=== PATIENT | male | born 1965 | race Caucasian/White ===

== ENCOUNTER 2018-10-01 21:32 | Inpatient (IN) | END 2018-10-15 18:05 | disposition home or self-care (01) | DRG 673 ==

== ENCOUNTER 2019-02-21 15:59 | Inpatient (IN) | payer MEDICAID ==
[~2019-02-21] VITALS: Ht 167.6 cm; Wt 78.5 kg
[~2019-02-21 15:59] MED LIST: ASPI-831 PO; ATOR-2 PO; BUME1TAB PO; CALC667C PO; CARV25TA79 PO; HYDR-3672 PO; LANT3I SC; LOSA25TA2 PO; NITR0.4T32 SL
[2019-02-21] MEDS ORDERED: FUROSEMIDE 40 MG INJ IV ONE (19:00)
--- NOTE | 2019-02-21 19:00 | ERD ---
ER Documentation Chief Complaint Chief Complaint SWELLING AND WATER RETENTION FOR THE PAST 2 WKS. MILD SOB ON EXERTION HPI This is a 54-year-old male with a past medical history of end-stage renal disease. The patient had been admitted to [facility] in September 2018, 4 months prior to arrival. The patient had been seen by the hospitalist and underwent emergent dialysis. He had a right tunneled chest catheter placed. The patient had left AGAINST MEDICAL ADVICE as he stated he did not want to continue dialysis. Therefore the patient has not received any further dialysis at this time. Indicates for the past 2 weeks he has had increased swelling of his lower extremities and abdomen. He denies any abdomi nal pain. He complains of mild shortness of breath at rest. He denies a productive or nonproductive cough. He is in no fevers or shaking or chills. He denies any frequency urgency or dysuria and has no difficulty urinating. The patient went to his primary care physician today who indicated that they could arrange for dialysis to be performed in the next several days but he required ancillary laboratory work. Therefore his niece brought him to the emergency department to be further evaluated. The patient denies any calf tenderness. ROS All systems reviewed and are negative except as per history of present illness. Medications Home Meds Reported Medications Clonidine Hcl* (Clonidine Hcl*) 0.1 Mg Tab, 0.1 MG PO BID, TAB 02/21/19 Amlodipine Besylate* (Amlodipine Besylate*) 10 Mg Tablet, 10 MG PO DAILY, #30 TAB 02/21/19 Insulin Aspart (Novolog Mix (70/30)) 100 Units/Ml Soln, 15 UNIT SC WITH LUNCH, VIAL 02/21/19 Hydralazine Hcl* (Hydralazine Hcl*) 25 Mg Tab, 25 MG PO TID, #90 TAB 02/21/19 Losartan Potassium* (Losartan Potassium*) 25 Mg Tablet, 25 MG PO DAILY, TAB 02/21/19 Carvedilol* (Carvedilol*) 25 Mg Tablet, 25 MG PO BID, #60 TAB 02/21/19 Bumetanide* (Bumetanide*) 1 Mg Tablet, 1 MG PO DAILY, TAB 02/21/19 Atorvastatin* (Atorvastatin*) 40 Mg Tablet, 40 MG PO QHS, #30 TAB 02/21/19 Aspirin* (Aspirin* EC) 81 Mg Tablet.dr, 81 MG PO DAILY, TAB 02/21/19 Discontinued Scripts Insulin Glargine* (Lantus*) 100 Unit/Ml Soln, 4 UNIT SC DAILY, #1 VIAL Prov:[facility] 10/15/18 Calcium Acetate* (Calcium Acetate*) 667 Mg Capsule, 1334 MG PO WITH MEALS, #90 CAP Prov:[facility] 10/15/18 Bumetanide* (Bumetanide*) 1 Mg Tablet, 1 MG PO DAILY, #60 TAB Prov:[facility] 10/15/18 Nitroglycerin* (Nitroglycerin* SL) 0.4 Mg Tab.subl, 1 TAB SL Q5M PRN for CHEST PAIN, #90 TAB Prov:[facility] 10/15/18 Aspirin (Aspirin) 81 Mg Chew, 81 MG PO DAILY, #60 TAB Prov:[facility] 10/15/18 Losartan Potassium* (Cozaar*) 25 Mg Tablet, 25 MG PO DAILY, #60 TAB Prov:[facility] 10/15/18 Hydralazine Hcl* (Apresoline*) 50 Mg Tab, 25 MG PO TID, #90 TAB Prov:[facility] 10/15/18 Carvedilol* (Carvedilol*) 25 Mg Tablet, 25 MG PO BID, #60 TAB Prov:[facility] 10/15/18 Atorvastatin* (Atorvastatin*) 80 Mg Tablet, 80 MG PO HS, #60 TAB Prov:[facility] 10/15/18 Allergies Allergies: Coded Allergies: No Known Allergy (Unverified , 02/21/19) PMhx/Soc History of Surgery: No Anesthesia Reaction: No Hx Neurological Disorder: No Hx Respiratory Disorders: No Hx Cardiac Disorders: No Hx Psychiatric Problems: No Hx Miscellaneous Medical Probl: Yes (hypertension, type 1 diabetes, dyslipidemia) Hx Alcohol Use: No Hx Substance Use: No Hx Tobacco Use: Yes Smoking Status: Current every day smoker Physical Exam Vitals Vital Signs Date Temp Pulse Resp B/P (MAP) Pulse Ox O2 O2 Flow FiO2 Time Delivery Rate 02/21/19 97.9 88 16 178/86 96 Room Air 18:23 (116) 02/21/19 97.5 94 18 207/95 97 16:04 (132) Physical Exam Constitutional:Well-developed. Well-nourished. HEENT:Normocephalic. Atraumatic.Pupils were equal round reactive to light. Moist mucous membranes.No tonsillar exudates. Neck: No nuchal rigidity. No lymphadenopathy. No posterior cervical spine tenderness or step-offs. Respiratory: Not using accessory muscles of respiration.Lungs were clear to auscultation bilaterally. No rhonchi. No rales. No wheezing. Cardiovascular: Regular rate regular rhythm.No murmurs. No rubs were appreciated.S1, S2 normal. Distal pulses are palpable 2+ bilaterally. 2+ pitting edema the bilateral lower extremities GI: Abdomen was soft. Nontender. Non Distended. No pulsatile abdominal masses or bruits. No rebound. No guarding. Bowel sounds were present and normal. Muscle skeletal: Full range of motion of both the upper and lower extremities bilaterally.Normal muscle tone.No assymetrical calf tenderness or swelling. Skin: No petechia, no purpura. No lesions on the palms or the soles of the feet. No maculopapular rash. Right tunneled chest wall catheter was in place. There is a significant amount of dirt surrounding the catheter site. Once this was clean there is no surrounding erythema warmth tenderness fluctuance or induration no purulent drainage. No tenderness out of proportion to physical exam. NEURO: Patient was alert, awake, orientated x3.No facial droop. Gait observed and normal with no ataxia.Speech had regular rate and rhythm. No focal neurological deficits. Result Diagram: 02/21/19183902/21/191839 Results 24 hrs Laboratory Tests Test 02/21/19 18:40 White Blood Count 4.8 10^3/ul Red Blood Count 2.71 10^6/ul Hemoglobin 8.4 g/dl Hematocrit 26.3 % Mean Corpuscular Volume 97.0 fl Mean Corpuscular Hemoglobin 31.0 pg Mean Corpuscular Hemoglobin Concent 31.9 g/dl Red Cell Distribution Width 13.3 % Platelet Count 160 10^3/UL Mean Platelet Volume 12.4 fl Immature Granulocytes % 0.200 % Neutrophils % 73.9 % Lymphocytes % 13.6 % Monocytes % 9.2 % Eosinophils % 2.1 % Basophils % 1.0 % Nucleated Red Blood Cells % 0.0 /100WBC Immature Granulocytes # 0.010 10^3/ul Neutrophils # 3.5 10^3/ul Lymphocytes # 0.7 10^3/ul Monocytes # 0.4 10^3/ul Eosinophils # 0.1 10^3/ul Basophils # 0.1 10^3/ul Nucleated Red Blood Cells # 0.0 10^3/ul Prothrombin Time 14.3 Sec Prothrombin Time Ratio 1.1 INR International Normalized Ratio 1.10 Activated Partial Thromboplast Time 32.6 Sec Sodium Level 138 mmol/L Potassium Level 5.1 mmol/L Chloride Level 103 mmol/L Carbon Dioxide Level 21 mmol/L Anion Gap 14 Blood Urea Nitrogen 101 mg/dl Creatinine 11.34 mg/dl Est Glomerular Filtrat Rate mL/min 5 mL/min Glucose Level 126 mg/dl Calcium Level 8.2 mg/dl Total Bilirubin 0.0 mg/dl Direct Bilirubin 0.00 mg/dl Indirect Bilirubin 0.0 mg/dl Aspartate Amino Transf (AST/SGOT) 13 IU/L Alanine Aminotransferase (ALT/SGPT) 16 IU/L Alkaline Phosphatase 127 IU/L Total Protein 6.7 g/dl Albumin 3.4 g/dl Globulin 3.30 g/dl Albumin/Globulin Ratio 1.03 Current Medications Medications Dose Sig/Rafael Start Time Status Last (Trade) Ordered Route PRN Stop Time Admin Dose Reason Admin Furosemide 80 mg ONCE ONCE 02/21/19 DC 02/21/19 (Lasix) IV 19:00 19:27 02/21/19 19:16 Procedures/MDM This patient presented to the emergency department with severely elevated blood pressure. My differential diagnosis included but was not limited to conditions that could end-organ damage such as acute coronary syndrome, acute pulmonary edema, aortic dissection, subarachnoid hemorrhage, intracerebral hemorrhage, cerebral infarction, withdrawal syndromes from beta blockers, or states of catecholamine excess such as pheochromocytoma or drug intoxication. The patient had uncontrolled hypertensive with end-organ damage to suggest hypertensive emergency. The treatment goal was immediate reduction of the mean arterial blood pressure. This was done in a controlled, graded manor, using improvement of the patient's condition as a guide. The patient's blood pressure reduction did not exceed more then a 20-25 percent reduction within the first 30 to 60 minutes. The patient was put on a loom fixer helper, continuous pulse oximetry, and IV access was established by nursing staff. The antihypertensive agent used was IV Lasix as the patient appeared to be fluid overloaded. The patient's blood pressure is significant improved. The patient had a chest radiograph that was reviewed by the radiologist myself and indicated the followin. Moderately enlarged cardiopericardial silhouette. Pericardial effusion as contributing component is not excluded. Consider CT for further evaluation as clinically warranted. 2. Aortic atherosclerosis. 3. Right lower lung field infiltrates may reflect evolving changes of pneumonia. Small left pleural effusion My clinical suspicion was low for pneumonia. The patient had no leukocytosis, did not complain of a cough, and no fever shaking or chills. The patient was in no respiratory distress. The patient had mild hypoxia at 96%. I have spoken with the admitting physician and we will obtain a CT scan of the patient's chest to further evaluate for possible pericardial effusion. The patient had acute kidney injury with a BUN of 101 and a creatinine of 11.34. The patient is able to make urine and as stated above had received IV Lasix with improvement of the patient's blood pressure. The patient's potassium was within normal limits. The patient will be admitted to undergo dialysis. 12 Lead EKG tracing ordered and reviewed by myself showed: Normal sinus rhythm of 85 bpm and no arrhythmia. TX interval normal. QRS duration normal. No ST segment elevation No ST segment depression. No changes consistent with acute ischemia. Critical Care: Time: 90 minutes Treatments/Evaluations: Close monitoring and treatment of unstable vital signs, cardiorespiratory, and neurologic status, while maintaining tight balance of fluid, respiratory, and cardiac interventions. Time does not include performing any of the above billable procedures. The patient will be admitted under the care of the hospitalist to the telemetry service. Departure Diagnosis: Primary Impression: Renal failure Renal failure chronicity: acute Acute renal failure type: unspecified Qualified Codes: N17.9 - Acute kidney failure, unspecified Additional Impression: Hypertensive emergency, no CHF Condition: Serious KWASI HART MD Feb 21, 2019 19:00
[2019-02-21] MEDS ORDERED: ASPI-817 PO (19:32)
[2019-02-21] MEDS ORDERED: ATOR40TA68 PO (19:32)
[2019-02-21] MEDS ORDERED: CARV25TA79 PO (19:33)
[2019-02-21] MEDS ORDERED: BUME1TAB PO (19:33)
[2019-02-21] MEDS ORDERED: LOSA25TA12 PO (19:34)
[2019-02-21] MEDS ORDERED: HYDR-3671 PO (19:35)
[2019-02-21] MEDS ORDERED: NOVMIX SC (19:36)
[2019-02-21] MEDS ORDERED: CLON-379 PO (19:37)
[2019-02-21] MEDS ORDERED: AMLO-147 PO (19:37)
[2019-02-21] MEDS ORDERED: ACETAMINOPHEN 325 MG TAB PO PRN (21:00)
[2019-02-21] MEDS ORDERED: ONDANSETRON 4 MG INJ IV PRN (21:00)
[2019-02-21 22:27] VITALS: PULSE 93
[2019-02-21 22:30] VITALS: BP 180/95; PULSE 69; RESP 18; Ht 167.6 cm; Wt 78.5 kg
--- NOTE | 2019-02-21 22:44 | HP ---
Date/Time of Note Date/Time of Note DATE: 02/21/19 TIME: 22:44 Assessment/Plan VTE Prophylaxis Pharmacological prophylaxis: heparin Assessment/Plan Assessment/Plan 1. Volume overload state -Patient was initiated on dialysis in September of last year. Unfortunately, patient never followed up -Nephrology consult for dialysis. Patient still has right chest tunneled catheter 2. ESRD: See #1 3. Hypertensive urgency: Adjust BP meds as needed. Blood pressure expected to be even better with dialysis 4. Diabetes: Insulin while in-house 5. Dyslipidemia: Continue statin Result Diagram: 02/21/19 1840 02/21/19 1840 Results 24hrs Laboratory Tests Test 02/21/19 18:40 White Blood Count 4.8 # Red Blood Count 2.71 L Hemoglobin 8.4 L Hematocrit 26.3 L Mean Corpuscular Volume 97.0 Mean Corpuscular Hemoglobin 31.0 Mean Corpuscular Hemoglobin Concent 31.9 L Red Cell Distribution Width 13.3 Platelet Count 160 # Mean Platelet Volume 12.4 H Immature Granulocytes % 0.200 Neutrophils % 73.9 Lymphocytes % 13.6 L Monocytes % 9.2 Eosinophils % 2.1 Basophils % 1.0 Nucleated Red Blood Cells % 0.0 Immature Granulocytes # 0.010 Neutrophils # 3.5 Lymphocytes # 0.7 L Monocytes # 0.4 Eosinophils # 0.1 Basophils # 0.1 Nucleated Red Blood Cells # 0.0 Prothrombin Time 14.3 Prothrombin Time Ratio 1.1 INR International Normalized Ratio 1.10 Activated Partial Thromboplast Time 32.6 Sodium Level 138 Potassium Level 5.1 Chloride Level 103 Carbon Dioxide Level 21 Anion Gap 14 H Blood Urea Nitrogen 101 H Creatinine 11.34 H Est Glomerular Filtrat Rate mL/min 5 L Glucose Level 126 Calcium Level 8.2 L Total Bilirubin 0.0 L Direct Bilirubin 0.00 Indirect Bilirubin 0.0 Aspartate Amino Transf (AST/SGOT) 13 L Alanine Aminotransferase (ALT/SGPT) 16 Alkaline Phosphatase 127 H Total Protein 6.7 Albumin 3.4 Globulin 3.30 H Albumin/Globulin Ratio 1.03 HPI/ROS Admit Date/Time Admit Date/Time Feb 21, 2019 at 20:44 Hx of Present Illness This is a 54-year-old male with a history of hypertension, diabetes, dyslipidemia, ESRD who was supposed to be on dialysis. Patient presented to ER complaining of shortness of breath and bilateral lower extremity swelling. Dialysis was initiated here in September of last year. Patient has right chest tunneled catheter, however patient never followed up and has not had a dialysis since September of last year. He actually left AMA during last hospitalization. He said he still makes plenty of urine. When he presented to ER, blood pressure was 207/95. Creatinine 11, BUN 101, potassium 5.1. Chest x-ray with the findings suggestive of pericardial effusion and infiltrate. Chest CT has been ordered. PMH/Family/Social Past Medical History Past Surgical Hx: other (See HPI) Family History Significant Family History: no pertinent family hx Social History Alcohol Use: other Smoking Status: Never smoker Drug Use: none Exam/Review of Systems Vital Signs Exam Constitutional: No acute distress. Head: normocephalic, atraumatic Eyes: EOMI, PERRL Respiratory: clear to auscultation, normal air movement Cardiovascular: regular rate and rhythm, nl pulses Gastrointestinal: soft, Extremities: nl pulse Medications Current Medications Ondansetron HCl (Zofran Inj) 4 mg ER BRIDGE PRN IV NAUSEA/VOMITING; Start 02/21/19 at 21:00; Stop 02/22/19 at 20:59 Acetaminophen (Tylenol Tab) 650 mg ER BRIDGE PRN PO .MILD PAIN 1-3 OR TEMP; Start 02/21/19 at 21:00; Stop 02/22/19 at 20:59 IV Flush (NS 3 ml) 3 ml PER PROTOCOL IV ; Start 02/21/19 at 23:00; Status UNV Ondansetron HCl (Zofran Inj) 4 mg Q6H PRN IV NAUSEA/VOMITING; Start 02/21/19 at 23:00; Status UNV Acetaminophen (Tylenol Tab) 650 mg Q6H PRN PO .PAIN 1-3 OR TEMP; Start 02/21/19 at 23:00; Status UNV Albuterol/ Ipratropium (Duoneb) 3 ml Q2H RESP THERAPY PRN HHN SHORTNESS OF BREATH; Start 02/21/19 at 23:00; Status UNV Amlodipine Besylate (Norvasc) 10 mg DAILY PO ; Start 02/22/19 at 09:00; Status UNV Aspirin (Halfprin) 81 mg DAILY PO ; Start 02/22/19 at 09:00; Status UNV Atorvastatin Calcium (Lipitor) 40 mg QHS PO ; Start 02/22/19 at 21:00; Status UNV Bumetanide (Bumex) 1 mg DAILY PO ; Start 02/22/19 at 09:00; Status UNV Carvedilol (Coreg) 25 mg BID PO ; Start 02/21/19 at 23:00; Status UNV Hydralazine HCl (Apresoline) 25 mg TID PO ; Start 02/21/19 at 23:00; Status UNV Losartan Potassium (Cozaar) 25 mg DAILY PO ; Start 02/22/19 at 09:00; Status UNV Coded Allergies: No Known Allergy (Unverified , 02/21/19) Past Surgical History Past Surgical Hx: no surgical history Family History Significant Family History: heart disease Social History Smoking Status: Current every day smoker Exam/Review of Systems Vital Signs Vitals Vital Signs Date Temp Pulse Resp B/P (MAP) Pulse Ox O2 O2 Flow FiO2 Time Delivery Rate 02/21/19 87 23 182/99 99 Nasal 4.0 21:40 (126) Cannula 02/21/19 97.9 18:23 WILLIAN CALVERT MD Feb 21, 2019 22:44
[2019-02-21] MEDS ORDERED: NACL 0.9% 3 ML SYG IV SCH (23:00)
[2019-02-21] MEDS ORDERED: ALBUTEROL/IPRATROPIUM (NEB) 3 ML AMP HHN PRN (23:00)
[2019-02-21] MEDS ORDERED: GLUCOSE GEL 15 GRAM TUBE BUCCAL PRN (23:30)
[2019-02-21] MEDS ORDERED: GLUCAGON 1 MG INJ IM PRN (23:30)
[2019-02-21] MEDS ORDERED: GLUCOSE GEL 15 GRAM TUBE PO PRN ×2 (23:30)
[2019-02-21] MEDS ORDERED: DEXTROSE 50% 50 ML SYRINGE IV PRN ×2 (23:30)
[2019-02-22] VITALS (11 sets, daily range): BP systolic 119–155; BP diastolic 62–73; PULSE 60–84; RESP 18–20
[2019-02-22] MEDS: ACCU-CHEK XX SCH (01:29)
[2019-02-22] MEDS: INSULIN GLARGINE [LANTus] (100 UNITS/ML) SYG SC SCH (09:12)
[2019-02-22] MEDS: INSULIN ASPART [NOVOLOG] 3 ML PEN SC SCH ×7 (09:13→20:11)
[2019-02-22] MEDS: BUMETANIDE 1 MG TAB PO SCH (09:16)
[2019-02-22] MEDS: ASPIRIN (EC) 81 MG TAB PO SCH (09:16)
[2019-02-22] MEDS: AMLODIPINE 10 MG TAB PO SCH (09:17)
[2019-02-22] MEDS: LOSARTAN 25 MG TAB PO SCH (09:17)
--- NOTE | 2019-02-22 13:36 | PN ---
Date/Time of Note Date/Time of Note DATE: 02/22/19 TIME: 13:27 Assessment/Plan VTE Prophylaxis SCD applied (from Nsg): Yes Pharmacological prophylaxis: other Lines/Catheters IV Catheter Type (from Nrsg): Saline Lock Urinary Cath still in place: No Assessment/Plan Hospital Course S: Patient had no acute events overnight, waiting to be seen by renal team. O: VS - see below PE: Constitutional: Sitting up in bed, talking on the phone, no acute distress HEENT:Normocephalic. Atraumatic.Pupils were equal round reactive to light. Neck: No nuchal rigidity. No lymphadenopathy. No posterior cervical spine tende rness or step-offs. Respiratory: clear to auscultation bilaterally. No rhonchi. No rales. No wheezin g. Cardiovascular: Regular rate regular rhythm.No murmurs. No rubs were appreciated.S1, S2 normal. GI: Abdomen was soft. Nontender. Non Distended. No rebound. No guarding. Bowel sounds were present and normal. Muscle skeletal: Full range of motion of both the upper and lower extremities bilaterally.Normal muscle tone.No assymetrical calf tenderness or swelling. Skin: No petechia, no purpura. No lesions on the palms or the soles of the feet. No maculopapular rash. Right tunneled chest wall catheter was in place. Musculoskeletal: 1+ pitting edema bilateral lower extremities in the milligrams NEURO: No focal neurological deficits. Assessment/Plan: 54-year-old male with a history of hypertension, diabetes, dyslipidemia, ESRD who was supposed to be on dialysis, who presents with: 1. Volume overload state-Patient was initiated on dialysis in September of last year. Unfortunately, patient apparently never followed up after that -We will obtain nephrology consult for dialysis. Of note, patient still has right chest tunneled catheter -Duo nebs as needed 2. ESRD: See #1 3. Hypertensive urgency: Resolved, blood pressure more stable now -adjust BP meds as needed. Of note blood pressure expected to be even better with dialysis 4. Diabetes: Follow-up A1c, continue insulin while in-house 5. Dyslipidemia: Continue statin 6. Smoking history: Counseled on cessation, start nicotine patch Result Diagram: 02/22/1961902/22/19 0620 Results 24hrs Laboratory Tests Test 02/21/19 18:40 02/22/19 06:20 02/22/19 08:03 02/22/19 13:02 White Blood Count 4.8 # 3.3 #L Red Blood Count 2.71 L 2.33 L Hemoglobin 8.4 L 7.0 L Hematocrit 26.3 L 22.4 L Mean Corpuscular 97.0 96.1 Volume Mean Corpuscular 31.0 30.0 Hemoglobin Mean Corpuscular 31.9 L 31.3 L Hemoglobin Concent Red Cell 13.3 13.5 Distribution Width Platelet Count 160 # 105 #L Mean Platelet Volume 12.4 H 12.7 H Immature 0.200 0.300 Granulocytes % Neutrophils % 73.9 72.6 Lymphocytes % 13.6 L 14.5 L Monocytes % 9.2 9.3 Eosinophils % 2.1 3.0 Basophils % 1.0 0.3 Nucleated Red Blood 0.0 0.0 Cells % Immature 0.010 0.010 Granulocytes # Neutrophils # 3.5 2.4 Lymphocytes # 0.7 L 0.5 L Monocytes # 0.4 0.3 Eosinophils # 0.1 0.1 Basophils # 0.1 0.0 Nucleated Red Blood 0.0 0.0 Cells # Prothrombin Time 14.3 Prothrombin Time 1.1 Ratio INR International 1.10 Normalized Ratio Activated 32.6 Partial Thromboplast Time Sodium Level 138 138 Potassium Level 5.1 5.2 H Chloride Level 103 105 Carbon Dioxide Level 21 21 Anion Gap 14 H 12 Blood Urea Nitrogen 101 H 102 H Creatinine 11.34 H 11.05 H Est Glomerular 5 L 5 L Filtrat Rate mL/min Glucose Level 126 119 Calcium Level 8.2 L 7.8 L Total Bilirubin 0.0 L 0.0 L Direct Bilirubin 0.00 0.00 Indirect Bilirubin 0.0 0.0 Aspartate Amino 13 L 10 L Transf (AST/SGOT) Alanine 16 21 Aminotransferase (AL T/SGPT) Alkaline Phosphatase 127 H 99 Total Protein 6.7 5.6 #L Albumin 3.4 2.7 L Globulin 3.30 H 2.90 Albumin/Globulin 1.03 0.93 Ratio Hemoglobin A1c 6.3 H Magnesium Level 2.1 Iron Level 28 L Total Iron Binding 348 Capacity Percent Iron 8 L Saturation Ferritin 21.4 Bedside Glucose 147 167 Exam/Review of Systems Exam Vitals Vital Signs Date Temp Pulse Resp B/P (MAP) Pulse Ox O2 O2 Flow FiO2 Time Delivery Rate 02/22/19 98.2 68 20 137/64 95 Room Air 11:02 (88) 02/21/19 2.0 22:30 Intake and Output 02/21/19 02/21/19 02/22/19 1515:00 23:00 07:00 IntakeIntake Total 500 ml OutputOutput Total 475 ml BalanceBalance 25 ml Results Results 24hrs Laboratory Tests Test 02/21/19 18:40 02/22/19 06:20 02/22/19 08:03 02/22/19 13:02 White Blood Count 4.8 # 3.3 #L Red Blood Count 2.71 L 2.33 L Hemoglobin 8.4 L 7.0 L Hematocrit 26.3 L 22.4 L Mean Corpuscular 97.0 96.1 Volume Mean Corpuscular 31.0 30.0 Hemoglobin Mean Corpuscular 31.9 L 31.3 L Hemoglobin Concent Red Cell 13.3 13.5 Distribution Width Platelet Count 160 # 105 #L Mean Platelet Volume 12.4 H 12.7 H Immature 0.200 0.300 Granulocytes % Neutrophils % 73.9 72.6 Lymphocytes % 13.6 L 14.5 L Monocytes % 9.2 9.3 Eosinophils % 2.1 3.0 Basophils % 1.0 0.3 Nucleated Red Blood 0.0 0.0 Cells % Immature 0.010 0.010 Granulocytes # Neutrophils # 3.5 2.4 Lymphocytes # 0.7 L 0.5 L Monocytes # 0.4 0.3 Eosinophils # 0.1 0.1 Basophils # 0.1 0.0 Nucleated Red Blood 0.0 0.0 Cells # Prothrombin Time 14.3 Prothrombin Time 1.1 Ratio INR International 1.10 Normalized Ratio Activated 32.6 Partial Thromboplast Time Sodium Level 138 138 Potassium Level 5.1 5.2 H Chloride Level 103 105 Carbon Dioxide Level 21 21 Anion Gap 14 H 12 Blood Urea Nitrogen 101 H 102 H Creatinine 11.34 H 11.05 H Est Glomerular 5 L 5 L Filtrat Rate mL/min Glucose Level 126 119 Calcium Level 8.2 L 7.8 L Total Bilirubin 0.0 L 0.0 L Direct Bilirubin 0.00 0.00 Indirect Bilirubin 0.0 0.0 Aspartate Amino 13 L 10 L Transf (AST/SGOT) Alanine 16 21 Aminotransferase (AL T/SGPT) Alkaline Phosphatase 127 H 99 Total Protein 6.7 5.6 #L Albumin 3.4 2.7 L Globulin 3.30 H 2.90 Albumin/Globulin 1.03 0.93 Ratio Hemoglobin A1c 6.3 H Magnesium Level 2.1 Iron Level 28 L Total Iron Binding 348 Capacity Percent Iron 8 L Saturation Ferritin 21.4 Bedside Glucose 147 167 Medications Medication Current Medications IV Flush (NS 3 ml) 3 ml PER PROTOCOL IV ; Start 02/21/19 at 23:00 Ondansetron HCl (Zofran Inj) 4 mg Q6H PRN IV NAUSEA/VOMITING; Start 02/21/19 at 23:00 Acetaminophen (Tylenol Tab) 650 mg Q6H PRN PO .PAIN 1-3 OR TEMP; Start 02/21/19 at 23:00 Albuterol/ Ipratropium (Duoneb) 3 ml Q2H RESP THERAPY PRN HHN SHORTNESS OF BREATH; Start 02/21/19 at 23:00 Amlodipine Besylate (Norvasc) 10 mg DAILY PO Last administered on 02/22/19 09:17; Admin Dose 10 MG; Start 02/22/19 at 09:00 Aspirin (Halfprin) 81 mg DAILY PO Last administered on 02/22/19 09:16; Admin Dose 81 MG; Start 02/22/19 at 09:00 Atorvastatin Calcium (Lipitor) 40 mg QHS PO ; Start 02/22/19 at 21:00 Bumetanide (Bumex) 1 mg DAILY PO Last administered on 02/22/19 09:16; Admin Dose 1 MG; Start 02/22/19 at 09:00 Carvedilol (Coreg) 25 mg BID PO Last administered on 02/22/19 09:17; Admin Dose 25 MG; Start 02/21/19 at 23:00 Hydralazine HCl (Apresoline) 25 mg TID PO Last administered on 02/22/19 13:18; Admin Dose 25 MG; Start 02/21/19 at 23:00 Losartan Potassium (Cozaar) 25 mg DAILY PO Last administered on 02/22/19 09:17; Admin Dose 25 MG; Start 02/22/19 at 09:00 Diagnostic Test (Pha) (Accu-Chek) 1 ea 02 XX ; Start 02/22/19 at 02:00 Insulin Glargine (Lantus) 12 units DAILY@0800 SC Last administered on 02/22/19at 09:12; Admin Dose 12 UNITS; Start 02/22/19 at 08:00 Insulin Aspart (Novolog Insulin Pen) 5 unit WITH MEALS SC Last administered on 02/22/19at 13:09; Admin Dose 5 UNIT; Start 02/22/19 at 07:55 Insulin Aspart (Novolog Insulin Pen) NOVOLOG *MILD* ALGORITHM WITH MEALS BEDTIME SC Last administered on 02/22/19at 13:09; Admin Dose 1 UNIT; Start 02/22/19 at 07:55 Miscellaneous Information 1 ea NOTE XX ; Start 02/21/19 at 23:30 Glucose (Glutose) 15 gm Q15M PRN PO DECREASED GLUCOSE; Start 02/21/19 at 23:30 Glucose (Glutose) 22.5 gm Q15M PRN PO DECREASED GLUCOSE; Start 02/21/19 at 23:30 Dextrose (D50w Syringe) 25 ml Q15M PRN IV DECREASED GLUCOSE; Start 02/21/19 at 23:30 Dextrose (D50w Syringe) 50 ml Q15M PRN IV DECREASED GLUCOSE; Start 02/21/19 at 23:30 Glucagon (Glucagen) 1 mg Q15M PRN IM DECREASED GLUCOSE; Start 02/21/19 at 23:30 Glucose (Glutose) 15 gm Q15M PRN BUCCAL DECREASED GLUCOSE; Start 02/21/19 at 23:30 Miscellaneous Information Patients own medicat... BID@10,16 XX ; Start 02/22/19 at 10:00 BRIANA YEBOAH Feb 22, 2019 13:36
[2019-02-22] MEDS: NICOTINE (14 MG/24 HR) PATCH TRANSDERM SCH (16:54)
--- NOTE | 2019-02-22 17:10 | QN ---
Documentation Comment [id number] consult KRISTIE HERNDON MD Feb 22, 2019 17:10
[2019-02-22] MEDS: ATORVASTATIN 40 MG TAB PO SCH (20:14)
--- NOTE | 2019-02-22 23:08 | CONS ---
DATE OF ADMISSION: 02/21/2019 DATE OF CONSULTATION: TYPE OF CONSULTATION: Nephrology. Thank you, Dr. Villa and Dr. Calvert for kindly asking me to see this patient in nephrology consultation. HISTORY OF PRESENT ILLNESS: Jus Lomeli was previously discharged with renal failure. The patient has a history of hypertensive emergency in the past, history of hyperkalemia, history of aubree betic nephropathy, hypertension, dyslipidemia and proteinuria. The patient also has a Perm-A-Cath . He was discharged. The patient now presents with short of breath, volume overload and worsening low er extremity edema. He has anasarca and is going to be admitted for further management. The patient 's blood pressure recorded was 127/64 and pulse of 68. PAST MEDICAL HISTORY: CKD V, hypertension, diabetes mellitus, anasarca, proteinuria and anemia. The patient also has hypoalbuminemia. ALLERGY HISTORY: NEGATIVE. FAMILY HISTORY: Negative. SOCIAL HISTORY: He denies. MEDICATION HISTORY: Include: 1. Amlodipine. 2. Aspirin. 3. Lipitor. 4. Bumex. 5. Coreg. 6. Clonidine. 7. Hydralazine. 8. Insulin. 9. Losartan. Currently, the patient is on: 1. Tylenol. 2. Amlodipine. 3. Aspirin. 4. Lipitor. 5. Bumex. 6. Coreg. 7. Hydralazine. 8. Insulin. 9. Losartan. 10. Nicotine. 11. Zofran. REVIEW OF SYSTEMS: HEENT: Unremarkable. RESPIRATORY: Short of breath and cough. CARDIOVASCULAR: No chest pain, palpitation. ABDOMEN: Increasing abdominal size. EXTREMITIES: Worsening lower extremity swelling. CENTRAL NERVOUS SYSTEM: Weakness. PHYSICAL EXAMINATION: GENERAL: Anasarcic-looking male. VITAL SIGNS: Pulse 61, blood pressure 123/63. HEENT: Atraumatic, normocephalic. Pupils equal, reactive to light. NECK: Supple, no JVD. LUNGS: Clear. CARDIOVASCULAR: S1, S2 are normal. LUNGS: Basal rales and rhonchi noted. ABDOMEN: Soft, obese. Bowel sounds positive. No palpable mass or hepatosplenomegaly. No guarding, rebound or tenderness. EXTREMITIES: No cyanosis, clubbing, 3+ edema noted. CENTRAL NERVOUS SYSTEM: The patient is awake, alert, moving both upper and lower extremities. LABORATORY DATA: Chest x-ray shows right lower lung field infiltrate, may reflect ____ changes pneum onia, small left pleural effusion, aortic atherosclerosis, moderately enlarged cardiopulmonary silhou ette. CT chest, moderate to large right pleural effusion and small left pleural effusion, scattered nonspecific ground glass opacities. IMPRESSION: 1. The patient has end-stage renal disease. 2. Hypertension. 3. Diabetes mellitus. 4. Anasarca. 5. Volume overload. 6. Hyperkalemia. 7. Anemia of chronic kidney disease. 8. Diabetes mellitus. 9. Hypoalbuminemia. 10. Uremic symptoms. PLAN: To continue renal diet. Continue fluid restriction. Hepatitis panel. Hemodialysis has been ordered. The patient lives in [place], we will arrange for hemodialysis in that area. Thank you, Dr. Villa for kindly asking me to see this patient in nephrology consultation. Dictated By: KRISTIE HERNDON MD BS/NTS Conf#: [id number] DID#: [id number] CC: WILLIAN CALVERT MD;*EndCC*
[2019-02-23] VITALS (30 sets, daily range): BP systolic 143–168; BP diastolic 57–77; PULSE 60–75; RESP 16–19
[2019-02-23] MEDS ORDERED: MANNITOL 25% 50 ML INJ IV* STA (01:51)
[2019-02-23] MEDS: ACCU-CHEK XX SCH (01:56)
[2019-02-23] MEDS: INSULIN ASPART [NOVOLOG] 3 ML PEN SC SCH ×7 (07:27→20:03)
[2019-02-23] MEDS: AMLODIPINE 10 MG TAB PO SCH (08:36)
[2019-02-23] MEDS: NICOTINE (14 MG/24 HR) PATCH TRANSDERM SCH (08:36)
[2019-02-23] MEDS: BUMETANIDE 1 MG TAB PO SCH (08:36)
[2019-02-23] MEDS: LOSARTAN 25 MG TAB PO SCH (08:36)
[2019-02-23] MEDS: ASPIRIN (EC) 81 MG TAB PO SCH (08:37)
[2019-02-23] MEDS: INSULIN GLARGINE [LANTus] (100 UNITS/ML) SYG SC SCH (09:30)
[2019-02-23] MEDS ORDERED: SOD CHLORIDE 0.9% 250 ML IV* ONE (09:55)
--- NOTE | 2019-02-23 09:59 | PN ---
Date/Time of Note Date/Time of Note DATE: 02/23/19 TIME: 09:53 Assessment/Plan VTE Prophylaxis Risk score (from Nsg)>0 risk: 4 SCD applied (from Nsg): Yes Pharmacological prophylaxis: other Lines/Catheters IV Catheter Type (from Nrsg): Saline Lock Urinary Cath still in place: No Assessment/Plan Hospital Course S: Patient per nursing staff received dialysis this morning. No acute events overnight, seen by renal team yesterday, tolerating diet. O: VS - see below PE: Constitutional: Lying in bed, no acute distress HEENT:Normocephalic. Atraumatic.Pupils were equal round reactive to light. Neck: No nuchal rigidity. No lymphadenopathy. No posterior cervical spine tenderness or step-offs. Respiratory: clear to auscultation bilaterally. No rhonchi. No rales. No wheezing. Cardiovascular: Regular rate regular rhythm.No murmurs. No rubs were appreciated.S1, S2 normal. GI: Abdomen was soft. Nontender. Non Distended. No rebound. No guarding. Bowel sounds were present and normal. Muscle skeletal: Full range of motion of both the upper and lower extremities bilaterally.Normal muscle tone.No assymetrical calf tenderness or swelling. Skin: No petechia, no purpura. No lesions on the palms or the soles of the feet. No maculopapular rash. Right tunneled chest wall catheter was in place. Musculoskeletal: 1+ pitting edema bilateral lower extremities to the mid calves NEURO: No focal neurological deficits. Assessment/Plan: 54-year-old male with a history of hypertension, diabetes, dyslipidemia, ESRD who was supposed to be on dialysis, who presents with: 1. Volume overload state-slowly improving after getting dialysis here as an inpatient, patient was initiated on dialysis in September of last year. Unfortunately, patient apparently never followed up after that. -Follow-up recommendations from nephrology consult for dialysis schedule while here in the hospital. Of note, patient still has right chest tunneled catheter -Duo nebs as needed, case management also contacted to set up patient's dialysis as an outpatient 2. ESRD: See #1 3. Hypertensive urgency: Resolved -Continue current blood pressure medicines, adjust BP meds as needed. Of note blood pressure expected to be even better with dialysis 4. Diabetes: A1c equals 6.3 -Monitor sugars continue insulin while in-house 5. Dyslipidemia: Continue statin 6. Smoking history: Counseled on cessation - nicotine patch Result Diagram: 02/23/19 0559 02/23/19 0559 Results 24hrs Laboratory Tests Test 02/22/19 13:02 02/22/19 13:57 02/22/19 17:16 02/22/19 17:17 Bedside Glucose 167 69 L 63 L Hemoglobin 7.0 L Hematocrit 22.2 L Hepatitis B Surface NEGATIVE Antigen Hepatitis B Core NEGATIVE Total Antibody Hepatitis C Antibody NEGATIVE Test 02/22/19 17:33 02/22/19 17:49 02/22/19 20:11 02/23/19 05:59 Bedside Glucose 74 114 97 White Blood Count 4.0 #L Red Blood Count 2.35 L Hemoglobin 7.2 L Hematocrit 22.1 L Mean Corpuscular 94.0 Volume Mean Corpuscular 30.6 Hemoglobin Mean Corpuscular 32.6 Hemoglobin Concent Red Cell 13.1 Distribution Width Platelet Count 122 L Mean Platelet Volume 12.9 H Immature 0.200 Granulocytes % Neutrophils % 74.7 Lymphocytes % 12.7 L Monocytes % 9.7 Eosinophils % 2.5 Basophils % 0.2 Nucleated Red Blood 0.0 Cells % Immature 0.010 Granulocytes # Neutrophils # 3.0 Lymphocytes # 0.5 L Monocytes # 0.4 Eosinophils # 0.1 Basophils # 0.0 Nucleated Red Blood 0.0 Cells # Sodium Level 137 Potassium Level 3.9 Chloride Level 102 Carbon Dioxide Level 25 Anion Gap 10 Blood Urea Nitrogen 81 H Creatinine 8.55 #H Est Glomerular 7 L Filtrat Rate mL/min Glucose Level 147 Calcium Level 8.0 L Exam/Review of Systems Exam Vitals Vital Signs Date Temp Pulse Resp B/P (MAP) Pulse Ox O2 O2 Flow FiO2 Time Delivery Rate 02/23/19 62 08:00 02/23/19 97.6 19 145/70 96 07:19 (95) 02/23/19 Room Air 05:15 02/22/19 2.0 20:00 Intake and Output 02/22/19 02/22/19 02/23/19 1515:00 23:00 07:00 IntakeIntake Total 990 ml 500 ml OutputOutput Total 2700 ml BalanceBalance 990 ml -2200 ml Results Results 24hrs Laboratory Tests Test 02/22/19 13:02 02/22/19 13:57 02/22/19 17:16 02/22/19 17:17 Bedside Glucose 167 69 L 63 L Hemoglobin 7.0 L Hematocrit 22.2 L Hepatitis B Surface NEGATIVE Antigen Hepatitis B Core NEGATIVE Total Antibody Hepatitis C Antibody NEGATIVE Test 02/22/19 17:33 02/22/19 17:49 02/22/19 20:11 02/23/19 05:59 Bedside Glucose 74 114 97 White Blood Count 4.0 #L Red Blood Count 2.35 L Hemoglobin 7.2 L Hematocrit 22.1 L Mean Corpuscular 94.0 Volume Mean Corpuscular 30.6 Hemoglobin Mean Corpuscular 32.6 Hemoglobin Concent Red Cell 13.1 Distribution Width Platelet Count 122 L Mean Platelet Volume 12.9 H Immature 0.200 Granulocytes % Neutrophils % 74.7 Lymphocytes % 12.7 L Monocytes % 9.7 Eosinophils % 2.5 Basophils % 0.2 Nucleated Red Blood 0.0 Cells % Immature 0.010 Granulocytes # Neutrophils # 3.0 Lymphocytes # 0.5 L Monocytes # 0.4 Eosinophils # 0.1 Basophils # 0.0 Nucleated Red Blood 0.0 Cells # Sodium Level 137 Potassium Level 3.9 Chloride Level 102 Carbon Dioxide Level 25 Anion Gap 10 Blood Urea Nitrogen 81 H Creatinine 8.55 #H Est Glomerular 7 L Filtrat Rate mL/min Glucose Level 147 Calcium Level 8.0 L Medications Medication Current Medications IV Flush (NS 3 ml) 3 ml PER PROTOCOL IV ; Start 02/21/19 at 23:00 Ondansetron HCl (Zofran Inj) 4 mg Q6H PRN IV NAUSEA/VOMITING; Start 02/21/19 at 23:00 Acetaminophen (Tylenol Tab) 650 mg Q6H PRN PO .PAIN 1-3 OR TEMP; Start 02/21/19 at 23:00 Albuterol/ Ipratropium (Duoneb) 3 ml Q2H RESP THERAPY PRN HHN SHORTNESS OF BREATH; Start 02/21/19 at 23:00 Amlodipine Besylate (Norvasc) 10 mg DAILY PO Last administered on 02/23/19at 08:36; Admin Dose 10 MG; Start 02/22/19 at 09:00 Aspirin (Halfprin) 81 mg DAILY PO Last administered on 02/23/19at 08:37; Admin Dose 81 MG; Start 02/22/19 at 09:00 Atorvastatin Calcium (Lipitor) 40 mg QHS PO Last administered on 02/22/19 20:14; Admin Dose 40 MG; Start 02/22/19 at 21:00 Bumetanide (Bumex) 1 mg DAILY PO Last administered on 02/23/19 08:36; Admin Dose 1 MG; Start 02/22/19 at 09:00 Carvedilol (Coreg) 25 mg BID PO Last administered on 02/23/19 08:37; Admin Dose 25 MG; Start 02/21/19 at 23:00 Hydralazine HCl (Apresoline) 25 mg TID PO Last administered on 02/23/19 08:37; Admin Dose 25 MG; Start 02/21/19 at 23:00 Losartan Potassium (Cozaar) 25 mg DAILY PO Last administered on 02/23/19 08:36; Admin Dose 25 MG; Start 02/22/19 at 09:00 Diagnostic Test (Pha) (Accu-Chek) 1 ea 02 XX ; Start 02/22/19 at 02:00 Insulin Glargine (Lantus) 12 units DAILY@0800 SC Last administered on 02/23/19 09:30; Admin Dose 12 UNITS; Start 02/22/19 at 08:00 Insulin Aspart (Novolog Insulin Pen) 5 unit WITH MEALS SC Last administered on 02/23/19 08:42; Admin Dose 5 UNIT; Start 02/22/19 at 07:55 Insulin Aspart (Novolog Insulin Pen) NOVOLOG *MILD* ALGORITHM WITH MEALS BEDTIME SC Last administered on 02/22/19at 13:09; Admin Dose 1 UNIT; Start 02/22/19 at 07:55 Miscellaneous Information 1 ea NOTE XX ; Start 02/21/19 at 23:30 Glucose (Glutose) 15 gm Q15M PRN PO DECREASED GLUCOSE; Start 02/21/19 at 23:30 Glucose (Glutose) 22.5 gm Q15M PRN PO DECREASED GLUCOSE; Start 02/21/19 at 23:30 Dextrose (D50w Syringe) 25 ml Q15M PRN IV DECREASED GLUCOSE; Start 02/21/19 at 23:30 Dextrose (D50w Syringe) 50 ml Q15M PRN IV DECREASED GLUCOSE; Start 02/21/19 at 23:30 Glucagon (Glucagen) 1 mg Q15M PRN IM DECREASED GLUCOSE; Start 02/21/19 at 23:30 Glucose (Glutose) 15 gm Q15M PRN BUCCAL DECREASED GLUCOSE; Start 02/21/19 at 23:30 Miscellaneous Information Patients own medicat... BID@10,16 XX ; Start 02/22/19 at 10:00 Nicotine (Nicoderm 14 Mg/ 24hr) 1 patch DAILY TRANSDERM Last administered on 02/23/19at 08:36; Admin Dose 1 PATCH; Start 02/22/19 at 13:30 BRIANA YEBOAH Feb 23, 2019 09:58
--- NOTE | 2019-02-23 15:18 | CONS ---
Assessment/Plan Assessment/Plan Hospital Course (Demo Recall) 1. The patient has end-stage renal disease. 2. Hypertension. 3. Diabetes mellitus. 4. Anasarca. 5. Volume overload. 6. Hyperkalemia. 7. Normocytic normochromic anemia of chronic kidney disease. 8. Diabetes mellitus. 9. Hypoalbuminemia. 10. Uremic symptoms. 11. right arm edema Assessment/Plan (Daily) -continue renal diet. -start Epogen - Continue fluid restriction. -Hepatitis panel -phos level -venous US right arm . -Hemodialysis has been ordered. -case preparer and liner arrange for hemodialysis in that area. Consultation Date/Type/Reason Admit Date/Time Feb 21, 2019 at 20:44 Initial Consult Date Date/Time of Note DATE: 02/23/19 TIME: 15:13 Exam/Review of Systems Exam Vitals Vital Signs Date Temp Pulse Resp B/P (MAP) Pulse Ox O2 O2 Flow FiO2 Time Delivery Rate 02/23/19 61 12:00 02/23/19 98.2 18 144/67 96 11:09 (92) 02/23/19 Nasal 2.0 08:00 Cannula Intake and Output 02/22/19 02/22/19 02/23/19 1414:59 22:59 06:59 IntakeIntake Total 990 ml 500 ml OutputOutput Total 2700 ml BalanceBalance 990 ml -2200 ml Exam right chest Permcath Constitutional: alert, oriented Neck: supple Respiratory: diminished breath sounds Cardiovascular: regular rate and rhythm Gastrointestinal: soft (right arm) Musculoskeletal: swelling Results Result Diagram: 02/23/19 0559 02/23/19 0559 Results 24hrs Laboratory Tests Test 02/22/19 17:16 02/22/19 17:17 02/22/19 17:33 02/22/19 17:49 Bedside Glucose 69 L 63 L 74 114 Test 02/22/19 20:11 02/23/19 05:59 02/23/19 09:30 02/23/19 12:24 Bedside Glucose 97 135 White Blood Count 4.0 #L Red Blood Count 2.35 L Hemoglobin 7.2 L Hematocrit 22.1 L Mean Corpuscular 94.0 Volume Mean Corpuscular 30.6 Hemoglobin Mean Corpuscular 32.6 Hemoglobin Concent Red Cell 13.1 Distribution Width Platelet Count 122 L Mean Platelet Volume 12.9 H Immature 0.200 Granulocytes % Neutrophils % 74.7 Lymphocytes % 12.7 L Monocytes % 9.7 Eosinophils % 2.5 Basophils % 0.2 Nucleated Red Blood 0.0 Cells % Immature 0.010 Granulocytes # Neutrophils # 3.0 Lymphocytes # 0.5 L Monocytes # 0.4 Eosinophils # 0.1 Basophils # 0.0 Nucleated Red Blood 0.0 Cells # Sodium Level 137 Potassium Level 3.9 Chloride Level 102 Carbon Dioxide Level 25 Anion Gap 10 Blood Urea Nitrogen 81 H Creatinine 8.55 #H Est Glomerular 7 L Filtrat Rate mL/min Glucose Level 147 Calcium Level 8.0 L Stool Occult Blood NEGATIVE Medications Medication Current Medications IV Flush (NS 3 ml) 3 ml PER PROTOCOL IV ; Start 02/21/19 at 23:00 Ondansetron HCl (Zofran Inj) 4 mg Q6H PRN IV NAUSEA/VOMITING; Start 02/21/19 at 23:00 Acetaminophen (Tylenol Tab) 650 mg Q6H PRN PO .PAIN 1-3 OR TEMP; Start 02/21/19 at 23:00 Albuterol/ Ipratropium (Duoneb) 3 ml Q2H RESP THERAPY PRN HHN SHORTNESS OF BREATH; Start 02/21/19 at 23:00 Amlodipine Besylate (Norvasc) 10 mg DAILY PO Last administered on 02/23/19 08:36; Admin Dose 10 MG; Start 02/22/19 at 09:00 Aspirin (Halfprin) 81 mg DAILY PO Last administered on 02/23/19 08:37; Admin Dose 81 MG; Start 02/22/19 at 09:00 Atorvastatin Calcium (Lipitor) 40 mg QHS PO Last administered on 02/22/19 20:14; Admin Dose 40 MG; Start 02/22/19 at 21:00 Bumetanide (Bumex) 1 mg DAILY PO Last administered on 02/23/19 08:36; Admin Do se 1 MG; Start 02/22/19 at 09:00 Carvedilol (Coreg) 25 mg BID PO Last administered on 02/23/19 08:37; Admin Dose 25 MG; Start 02/21/19 at 23:00 Hydralazine HCl (Apresoline) 25 mg TID PO Last administered on 02/23/19 12:26; Admin Dose 25 MG; Start 02/21/19 at 23:00 Losartan Potassium (Cozaar) 25 mg DAILY PO Last administered on 02/23/19at 08:36; Admin Dose 25 MG; Start 02/22/19 at 09:00 Diagnostic Test (Pha) (Accu-Chek) 1 ea 02 XX ; Start 02/22/19 at 02:00 Insulin Glargine (Lantus) 12 units DAILY@0800 SC Last administered on 02/23/19at 09:30; Admin Dose 12 UNITS; Start 02/22/19 at 08:00 Insulin Aspart (Novolog Insulin Pen) 5 unit WITH MEALS SC Last administered on 02/23/19 13:20; Admin Dose 5 UNIT; Start 02/22/19 at 07:55 Insulin Aspart (Novolog Insulin Pen) NOVOLOG *MILD* ALGORITHM WITH MEALS BEDTIME SC Last administered on 02/22/19 13:09; Admin Dose 1 UNIT; Start 02/22/19 at 07:55 Miscellaneous Information 1 ea NOTE XX ; Start 02/21/19 at 23:30 Glucose (Glutose) 15 gm Q15M PRN PO DECREASED GLUCOSE; Start 02/21/19 at 23:30 Glucose (Glutose) 22.5 gm Q15M PRN PO DECREASED GLUCOSE; Start 02/21/19 at 23:30 Dextrose (D50w Syringe) 25 ml Q15M PRN IV DECREASED GLUCOSE; Start 02/21/19 at 23:30 Dextrose (D50w Syringe) 50 ml Q15M PRN IV DECREASED GLUCOSE; Start 02/21/19 at 23:30 Glucagon (Glucagen) 1 mg Q15M PRN IM DECREASED GLUCOSE; Start 02/21/19 at 23:30 Glucose (Glutose) 15 gm Q15M PRN BUCCAL DECREASED GLUCOSE; Start 02/21/19 at 23:30 Miscellaneous Information Patients own medicat... BID@10,16 XX ; Start 02/22/19 at 10:00 Nicotine (Nicoderm 14 Mg/ 24hr) 1 patch DAILY TRANSDERM Last administered on 02/23/19at 08:36; Admin Dose 1 PATCH; Start 02/22/19 at 13:30 MAE ANNE Feb 23, 2019 15:18
--- NOTE | 2019-02-23 15:21 | CONS ---
Assessment/Plan Assessment/Plan Hospital Course (Demo Recall) 1. The patient has end-stage renal disease. 2. Hypertension. 3. Diabetes mellitus. 4. Anasarca. 5. Volume overload. 6. Hyperkalemia. 7. Anemia of chronic kidney disease. 8. Diabetes mellitus. 9. Hypoalbuminemia. 10. Uremic symptoms. plan hd daily for 3 days Consultation Date/Type/Reason Admit Date/Time Feb 21, 2019 at 20:44 Initial Consult Date Type of Consult renal f/u s/p hd leg kris+ Date/Time of Note DATE: 02/23/19 TIME: 15:20 Exam/Review of Systems Exam Vitals Vital Signs Date Temp Pulse Resp B/P (MAP) Pulse Ox O2 O2 Flow FiO2 Time Delivery Rate 02/23/19 61 12:00 02/23/19 98.2 18 144/67 96 11:09 (92) 02/23/19 Nasal 2.0 08:00 Cannula Intake and Output 02/22/19 02/22/19 02/23/19 1515:00 23:00 07:00 IntakeIntake Total 990 ml 500 ml OutputOutput Total 2700 ml BalanceBalance 990 ml -2200 ml Respiratory: clear to auscultation, diminished breath sounds Cardiovascular: regular rate and rhythm Gastrointestinal: soft Extremities: edema (+++) Results Result Diagram: 02/23/19 0559 02/23/19 0559 Results 24hrs Laboratory Tests Test 02/22/19 17:16 02/22/19 17:17 02/22/19 17:33 02/22/19 17:49 Bedside Glucose 69 L 63 L 74 114 Test 02/22/19 20:11 02/23/19 05:59 02/23/19 09:30 02/23/19 12:24 Bedside Glucose 97 135 White Blood Count 4.0 #L Red Blood Count 2.35 L Hemoglobin 7.2 L Hematocrit 22.1 L Mean Corpuscular 94.0 Volume Mean Corpuscular 30.6 Hemoglobin Mean Corpuscular 32.6 Hemoglobin Concent Red Cell 13.1 Distribution Width Platelet Count 122 L Mean Platelet Volume 12.9 H Immature 0.200 Granulocytes % Neutrophils % 74.7 Lymphocytes % 12.7 L Monocytes % 9.7 Eosinophils % 2.5 Basophils % 0.2 Nucleated Red Blood 0.0 Cells % Immature 0.010 Granulocytes # Neutrophils # 3.0 Lymphocytes # 0.5 L Monocytes # 0.4 Eosinophils # 0.1 Basophils # 0.0 Nucleated Red Blood 0.0 Cells # Sodium Level 137 Potassium Level 3.9 Chloride Level 102 Carbon Dioxide Level 25 Anion Gap 10 Blood Urea Nitrogen 81 H Creatinine 8.55 #H Est Glomerular 7 L Filtrat Rate mL/min Glucose Level 147 Calcium Level 8.0 L Stool Occult Blood NEGATIVE Medications Medication Current Medications IV Flush (NS 3 ml) 3 ml PER PROTOCOL IV ; Start 02/21/19 at 23:00 Ondansetron HCl (Zofran Inj) 4 mg Q6H PRN IV NAUSEA/VOMITING; Start 02/21/19 at 23:00 Acetaminophen (Tylenol Tab) 650 mg Q6H PRN PO .PAIN 1-3 OR TEMP; Start 02/21/19 at 23:00 Albuterol/ Ipratropium (Duoneb) 3 ml Q2H RESP THERAPY PRN HHN SHORTNESS OF BREATH; Start 02/21/19 at 23:00 Amlodipine Besylate (Norvasc) 10 mg DAILY PO Last administered on 02/23/19 08: 36; Admin Dose 10 MG; Start 02/22/19 at 09:00 Aspirin (Halfprin) 81 mg DAILY PO Last administered on 02/23/19 08:37; Admin Dose 81 MG; Start 02/22/19 at 09:00 Atorvastatin Calcium (Lipitor) 40 mg QHS PO Last administered on 02/22/19 20:14; Admin Dose 40 MG; Start 02/22/19 at 21:00 Bumetanide (Bumex) 1 mg DAILY PO Last administered on 02/23/19 08:36; Admin Dose 1 MG; Start 02/22/19 at 09:00 Carvedilol (Coreg) 25 mg BID PO Last administered on 02/23/19 08:37; Admin Dose 25 MG; Start 02/21/19 at 23:00 Hydralazine HCl (Apresoline) 25 mg TID PO Last administered on 02/23/19 12:26; Admin Dose 25 MG; Start 02/21/19 at 23:00 Losartan Potassium (Cozaar) 25 mg DAILY PO Last administered on 02/23/19 08:36; Admin Dose 25 MG; Start 02/22/19 at 09:00 Diagnostic Test (Pha) (Accu-Chek) 1 ea 02 XX ; Start 02/22/19 at 02:00 Insulin Glargine (Lantus) 12 units DAILY@0800 SC Last administered on 02/23/19at 09:30; Admin Dose 12 UNITS; Start 02/22/19 at 08:00 Insulin Aspart (Novolog Insulin Pen) 5 unit WITH MEALS SC Last administered on 02/23/19at 13:20; Admin Dose 5 UNIT; Start 02/22/19 at 07:55 Insulin Aspart (Novolog Insulin Pen) NOVOLOG *MILD* ALGORITHM WITH MEALS BEDTIME SC Last administered on 02/22/19at 13:09; Admin Dose 1 UNIT; Start 02/22/19 at 07:55 Miscellaneous Information 1 ea NOTE XX ; Start 02/21/19 at 23:30 Glucose (Glutose) 15 gm Q15M PRN PO DECREASED GLUCOSE; Start 02/21/19 at 23:30 Glucose (Glutose) 22.5 gm Q15M PRN PO DECREASED GLUCOSE; Start 02/21/19 at 23:30 Dextrose (D50w Syringe) 25 ml Q15M PRN IV DECREASED GLUCOSE; Start 02/21/19 at 23:30 Dextrose (D50w Syringe) 50 ml Q15M PRN IV DECREASED GLUCOSE; Start 02/21/19 at 23:30 Glucagon (Glucagen) 1 mg Q15M PRN IM DECREASED GLUCOSE; Start 02/21/19 at 23:30 Glucose (Glutose) 15 gm Q15M PRN BUCCAL DECREASED GLUCOSE; Start 02/21/19 at 23:30 Miscellaneous Information Patients own medicat... BID@10,16 XX ; Start 02/22/19 at 10:00 Nicotine (Nicoderm 14 Mg/ 24hr) 1 patch DAILY TRANSDERM Last administered on 02/23/19at 08:36; Admin Dose 1 PATCH; Start 02/22/19 at 13:30 Epoetin Rafiq-epbx (Retacrit (Esrd)) 4,000 unit MoWeFr@1700 SC ; Start 02/24/19 at 17:00; Status KRISTIE COUCH MD Feb 23, 2019 15:21
[2019-02-23] MEDS ORDERED: MANNITOL 25% 50 ML IV STA (20:03)
[2019-02-23] MEDS: ONDANSETRON 4 MG INJ IV PRN (21:23)
[2019-02-23] MEDS: HEPARIN 1000 UNITS/ML 10 ML INJ CATHETER PRN (22:21)
[2019-02-23] MEDS: ATORVASTATIN 40 MG TAB PO SCH (22:25)
[2019-02-24] VITALS (19 sets, daily range): BP systolic 125–148; BP diastolic 58–67; PULSE 56–65; RESP 18–20
[2019-02-24] MEDS: ACCU-CHEK XX SCH (02:00)
[2019-02-24] MEDS: INSULIN ASPART [NOVOLOG] 3 ML PEN SC SCH ×7 (07:55→21:00)
[2019-02-24] MEDS: INSULIN GLARGINE [LANTus] (100 UNITS/ML) SYG SC SCH (08:09)
[2019-02-24] MEDS: NICOTINE (14 MG/24 HR) PATCH TRANSDERM SCH (08:13)
[2019-02-24] MEDS: LOSARTAN 25 MG TAB PO SCH (08:13)
[2019-02-24] MEDS: BUMETANIDE 1 MG TAB PO SCH (08:13)
[2019-02-24] MEDS: AMLODIPINE 10 MG TAB PO SCH (08:15)
[2019-02-24] MEDS: ASPIRIN (EC) 81 MG TAB PO SCH (08:33)
[2019-02-24] MEDS ORDERED: MANNITOL 25% 50 ML IV PRN (11:30)
[2019-02-24] MEDS: HEPARIN 1000 UNITS/ML 10 ML INJ CATHETER PRN (13:34)
--- NOTE | 2019-02-24 13:38 | CONS ---
Assessment/Plan Assessment/Plan Assessment/Plan (Daily) End-stage renal disease currently on dialysis. Permacath Done for venous mapping in anticipation for AV fistula placement Consultation Date/Type/Reason Admit Date/Time Feb 21, 2019 at 20:44 Date of Consultation: Feb 24, 2019 Type of Consult Vascular surgery Reason for Consultation Evaluation for dialysis access placement Date/Time of Note DATE: 02/24/19 TIME: 13:36 Hx of Present Illness 54-year-old male with a history of hypertension diabetes end-stage renal disease currently on dialysis. Permacath patient will be needing long-term hemodialysis access ENT: no complaints Respiratory: no complaints Cardiovascular: no complaints Gastrointestinal: no complaints Genitourinary: no complaints Musculoskeletal: no complaints Skin: no complaints Past Medical History Home Meds Reported Medications Clonidine Hcl* (Clonidine Hcl*) 0.1 Mg Tab, 0.1 MG PO BID, TAB 02/21/19 Amlodipine Besylate* (Amlodipine Besylate*) 10 Mg Tablet, 10 MG PO DAILY, #30 TAB 02/21/19 Insulin Aspart (Novolog Mix (/30)) 100 Units/Ml Soln, 15 UNIT SC WITH LUNCH, VIAL 02/21/19 Hydralazine Hcl* (Hydralazine Hcl*) 25 Mg Tab, 25 MG PO TID, #90 TAB 02/21/19 Losartan Potassium* (Losartan Potassium*) 25 Mg Tablet, 25 MG PO DAILY, TAB 02/21/19 Carvedilol* (Carvedilol*) 25 Mg Tablet, 25 MG PO BID, #60 TAB 02/21/19 Bumetanide* (Bumetanide*) 1 Mg Tablet, 1 MG PO DAILY, TAB 02/21/19 Atorvastatin* (Atorvastatin*) 40 Mg Tablet, 40 MG PO QHS, #30 TAB 02/21/19 Aspirin* (Aspirin* EC) 81 Mg Tablet.dr, 81 MG PO DAILY, TAB 02/21/19 Discontinued Scripts Insulin Glargine* (Lantus*) 100 Unit/Ml Soln, 4 UNIT SC DAILY, #1 VIAL Prov:ANITHA OJEDA 10/15/18 Calcium Acetate* (Calcium Acetate*) 667 Mg Capsule, 1334 MG PO WITH MEALS, #90 CAP Prov:ANITHA OJEDA 10/15/18 Bumetanide* (Bumetanide*) 1 Mg Tablet, 1 MG PO DAILY, #60 TAB Prov:ANITHA OJEDA 10/15/18 Nitroglycerin* (Nitroglycerin* SL) 0.4 Mg Tab.subl, 1 TAB SL Q5M PRN for CHEST PAIN, #90 TAB Prov:ANITHA OJEDA 10/15/18 Aspirin (Aspirin) 81 Mg Chew, 81 MG PO DAILY, #60 TAB [facility] 10/15/18 Losartan Potassium* (Cozaar*) 25 Mg Tablet, 25 MG PO DAILY, #60 TAB [facility] 10/15/18 Hydralazine Hcl* (Apresoline*) 50 Mg Tab, 25 MG PO TID, #90 TAB [facility] 10/15/18 Carvedilol* (Carvedilol*) 25 Mg Tablet, 25 MG PO BID, #60 TAB [facility] 10/15/18 Atorvastatin* (Atorvastatin*) 80 Mg Tablet, 80 MG PO HS, #60 TAB [facility] 10/15/18 Medications Current Medications IV Flush (NS 3 ml) 3 ml PER PROTOCOL IV ; Start 02/21/19 at 23:00 Ondansetron HCl (Zofran Inj) 4 mg Q6H PRN IV NAUSEA/VOMITING Last administered on 02/23/19at 21:23; Admin Dose 4 MG; Start 02/21/19 at 23:00 Acetaminophen (Tylenol Tab) 650 mg Q6H PRN PO .PAIN 1-3 OR TEMP; Start 02/21/19 at 23:00 Albuterol/ Ipratropium (Duoneb) 3 ml Q2H RESP THERAPY PRN HHN SHORTNESS OF BREATH; Start 02/21/19 at 23:00 Amlodipine Besylate (Norvasc) 10 mg DAILY PO Last administered on 02/24/19at 08:15; Admin Dose 10 MG; Start 02/22/19 at 09:00 Aspirin (Halfprin) 81 mg DAILY PO Last administered on 02/24/19at 08:33; Admin Dose 81 MG; Start 02/22/19 at 09:00 Atorvastatin Calcium (Lipitor) 40 mg QHS PO Last administered on 02/23/19at 22:25; Admin Dose 40 MG; Start 02/22/19 at 21:00 Bumetanide (Bumex) 1 mg DAILY PO Last administered on 02/24/19 08:13; Admin Dose 1 MG; Start 02/22/19 at 09:00 Carvedilol (Coreg) 25 mg BID PO Last administered on 02/24/19 08:14; Admin Dose 25 MG; Start 02/21/19 at 23:00 Hydralazine HCl (Apresoline) 25 mg TID PO Last administered on 02/24/19 08:15; Admin Dose 25 MG; Start 02/21/19 at 23:00 Losartan Potassium (Cozaar) 25 mg DAILY PO Last administered on 02/24/19 08:13; Admin Dose 25 MG; Start 02/22/19 at 09:00 Diagnostic Test (Pha) (Accu-Chek) 1 ea 02 XX ; Start 02/22/19 at 02:00 Insulin Glargine (Lantus) 12 units DAILY@0800 SC Last administered on 02/24/19 08:09; Admin Dose 12 UNITS; Start 02/22/19 at 08:00 Insulin Aspart (Novolog Insulin Pen) 5 unit WITH MEALS SC Last administered on 02/24/19at 12:27; Admin Dose 5 UNIT; Start 02/22/19 at 07:55 Insulin Aspart (Novolog Insulin Pen) NOVOLOG *MILD* ALGORITHM WITH MEALS BEDTIME SC Last administered on 02/22/19 13:09; Admin Dose 1 UNIT; Start 02/22/19 at 07:55 Miscellaneous Information 1 ea NOTE XX ; Start 02/21/19 at 23:30 Glucose (Glutose) 15 gm Q15M PRN PO DECREASED GLUCOSE; Start 02/21/19 at 23:30 Glucose (Glutose) 22.5 gm Q15M PRN PO DECREASED GLUCOSE; Start 02/21/19 at 23:30 Dextrose (D50w Syringe) 25 ml Q15M PRN IV DECREASED GLUCOSE; Start 02/21/19 at 23:30 Dextrose (D50w Syringe) 50 ml Q15M PRN IV DECREASED GLUCOSE; Start 02/21/19 at 23:30 Glucagon (Glucagen) 1 mg Q15M PRN IM DECREASED GLUCOSE; Start 02/21/19 at 23:30 Glucose (Glutose) 15 gm Q15M PRN BUCCAL DECREASED GLUCOSE; Start 02/21/19 at 23 :30 Miscellaneous Information Patients own medicat... BID@10,16 XX ; Start 02/22/19 at 10:00 Nicotine (Nicoderm 14 Mg/ 24hr) 1 patch DAILY TRANSDERM Last administered on 02/24/19at 08:13; Admin Dose 1 PATCH; Start 02/22/19 at 13:30 Epoetin Rafiq-epbx (Retacrit (Esrd)) 4,000 unit MoWeFr@1700 SC ; Start 02/24/19 at 17:00 Heparin Sodium (Porcine) (Heparin (1000 Units/ml)) 4,500 unit PRN PRN CATHETER Dialysis Last administered on 02/24/19at 13:34; Admin Dose 4,500 UNIT; Start 02/23/19 at 22:30 Mannitol 50 ml @ 50 mls/5 min WITH DIALYSIS PRN IV DISEQUILIBRIUM SYNDROME PPX Last administered on 02/24/19at 11:21; Admin Dose 50 MLS/5 MIN; Start 02/24/19 at 11:30 Calcium Acetate (Phoslo) 1,334 mg WITH MEALS PO ; Start 02/24/19 at 17:55 Allergies: Coded Allergies: No Known Allergy (Unverified , 02/21/19) Past Surgical History Past Surgical Hx: no surgical history Social History Smoking Status: Current every day smoker Exam/Review of Systems Exam Vitals Vital Signs Date Temp Pulse Resp B/P (MAP) Pulse Ox O2 O2 Flow FiO2 Time Delivery Rate 02/24/19 58 13:15 02/24/19 98.2 20 129/60 97 11:17 (83) 02/24/19 Room Air 2.0 11:00 Nasal Cannula Intake and Output 02/23/19 02/23/19 02/24/19 1515:00 23:00 07:00 IntakeIntake Total 550 ml 600 ml OutputOutput Total 2700 ml BalanceBalance -2150 ml 600 ml Eyes: nl conjunctiva, EOMI, nl lids, nl sclera, PERRL ENMT: nl external ears & nose, nl lips & teeth, nl nasal mucosa & septum Neck: supple, non-tender Respiratory: clear to auscultation, normal air movement Cardiovascular: regular rate and rhythm, nl pulses Gastrointestinal: soft, nl liver, spleen, non-tender Musculoskeletal: nl extremities to inspection, nl gait and stance Results Result Diagram: 02/24/1924 02/24/19 0624 Results 24hrs Laboratory Tests Test 02/23/19 17:27 02/23/19 20:01 02/24/19 06:24 02/24/19 08:06 Bedside Glucose 128 70 114 White Blood Count 3.7 L Red Blood Count 2.50 L Hemoglobin 7.7 L Hematocrit 23.5 L Mean Corpuscular 94.0 Volume Mean Corpuscular 30.8 Hemoglobin Mean Corpuscular 32.8 Hemoglobin Concent Red Cell 13.5 Distribution Width Platelet Count 105 L Mean Platelet Volume 13.4 H Immature 0.300 Granulocytes % Neutrophils % 67.7 Lymphocytes % 15.5 Monocytes % 13.3 H Eosinophils % 2.7 Basophils % 0.5 Nucleated Red Blood 0.0 Cells % Immature 0.010 Granulocytes # Neutrophils # 2.5 Lymphocytes # 0.6 L Monocytes # 0.5 Eosinophils # 0.1 Basophils # 0.0 Nucleated Red Blood 0.0 Cells # Sodium Level 139 Potassium Level 4.7 Chloride Level 104 Carbon Dioxide Level 26 Anion Gap 9 Blood Urea Nitrogen 75 H Creatinine 8.26 H Est Glomerular 7 L Filtrat Rate mL/min Glucose Level 102 # Calcium Level 7.5 L Phosphorus Level 7.4 H Test 02/24/19 12:13 Bedside Glucose 124 Medications Medication Current Medications IV Flush (NS 3 ml) 3 ml PER PROTOCOL IV ; Start 02/21/19 at 23:00 Ondansetron HCl (Zofran Inj) 4 mg Q6H PRN IV NAUSEA/VOMITING Last administered on 02/23/19at 21:23; Admin Dose 4 MG; Start 02/21/19 at 23:00 Acetaminophen (Tylenol Tab) 650 mg Q6H PRN PO .PAIN 1-3 OR TEMP; Start 02/21/19 at 23:00 Albuterol/ Ipratropium (Duoneb) 3 ml Q2H RESP THERAPY PRN HHN SHORTNESS OF BREATH; Start 02/21/19 at 23:00 Amlodipine Besylate (Norvasc) 10 mg DAILY PO Last administered on 02/24/19at 08:15; Admin Dose 10 MG; Start 02/22/19 at 09:00 Aspirin (Halfprin) 81 mg DAILY PO Last administered on 02/24/19at 08:33; Admin Dose 81 MG; Start 02/22/19 at 09:00 Atorvastatin Calcium (Lipitor) 40 mg QHS PO Last administered on 02/23/19 22:25; Admin Dose 40 MG; Start 02/22/19 at 21:00 Bumetanide (Bumex) 1 mg DAILY PO Last administered on 02/24/19 08:13; Admin Dose 1 MG; Start 02/22/19 at 09:00 Carvedilol (Coreg) 25 mg BID PO Last administered on 02/24/19 08:14; Admin Dose 25 MG; Start 02/21/19 at 23:00 Hydralazine HCl (Apresoline) 25 mg TID PO Last administered on 02/24/19 08:15; Admin Dose 25 MG; Start 02/21/19 at 23:00 Losartan Potassium (Cozaar) 25 mg DAILY PO Last administered on 02/24/19 08:13; Admin Dose 25 MG; Start 02/22/19 at 09:00 Diagnostic Test (Pha) (Accu-Chek) 1 ea 02 XX ; Start 02/22/19 at 02:00 Insulin Glargine (Lantus) 12 units DAILY@0800 SC Last administered on 02/24/19 08:09; Admin Dose 12 UNITS; Start 02/22/19 at 08:00 Insulin Aspart (Novolog Insulin Pen) 5 unit WITH MEALS SC Last administered on 02/24/19 12:27; Admin Dose 5 UNIT; Start 02/22/19 at 07:55 Insulin Aspart (Novolog Insulin Pen) NOVOLOG *MILD* ALGORITHM WITH MEALS BEDTIME SC Last administered on 02/22/19 13:09; Admin Dose 1 UNIT; Start 02/22/19 at 07:55 Miscellaneous Information 1 ea NOTE XX ; Start 02/21/19 at 23:30 Glucose (Glutose) 15 gm Q15M PRN PO DECREASED GLUCOSE; Start 02/21/19 at 23:30 Glucose (Glutose) 22.5 gm Q15M PRN PO DECREASED GLUCOSE; Start 02/21/19 at 23:30 Dextrose (D50w Syringe) 25 ml Q15M PRN IV DECREASED GLUCOSE; Start 02/21/19 at 23:30 Dextrose (D50w Syringe) 50 ml Q15M PRN IV DECREASED GLUCOSE; Start 02/21/19 at 23:30 Glucagon (Glucagen) 1 mg Q15M PRN IM DECREASED GLUCOSE; Start 02/21/19 at 23:30 Glucose (Glutose) 15 gm Q15M PRN BUCCAL DECREASED GLUCOSE; Start 02/21/19 at 23:30 Miscellaneous Information Patients own medicat... BID@10,16 XX ; Start 02/22/19 at 10:00 Nicotine (Nicoderm 14 Mg/ 24hr) 1 patch DAILY TRANSDERM Last administered on 02/24/19at 08:13; Admin Dose 1 PATCH; Start 02/22/19 at 13:30 Epoetin Rafiq-epbx (Retacrit (Esrd)) 4,000 unit MoWeFr@1700 SC ; Start 02/24/19 at 17:00 Heparin Sodium (Porcine) (Heparin (1000 Units/ml)) 4,500 unit PRN PRN CATHETER Dialysis Last administered on 02/24/19at 13:34; Admin Dose 4,500 UNIT; Start 02/23/19 at 22:30 Mannitol 50 ml @ 50 mls/5 min WITH DIALYSIS PRN IV DISEQUILIBRIUM SYNDROME PPX Last administered on 02/24/19at 11:21; Admin Dose 50 MLS/5 MIN; Start 02/24/19 at 11:30 Calcium Acetate (Phoslo) 1,334 mg WITH MEALS PO ; Start 02/24/19 at 17:55 ENRIQUE LACY MD Feb 24, 2019 13:38
--- NOTE | 2019-02-24 14:34 | CONS ---
Assessment/Plan Assessment/Plan Assessment/Plan (Daily) 1. The patient has end-stage renal disease. Noncompliant with follow-up never followed up with the dialysis center 2. Hypertension. 3. Diabetes mellitus. 4. Anasarca. 5. Volume overload. 6. Hyperkalemia. 7. Anemia of chronic kidney disease. 8. Diabetes mellitus. 9. Hypoalbuminemia. 10. Uremic symptoms. plan -HD today renally dose all meds -phos binder -Patient will be compliant with dialysis now -manager adobe to set up hemodialysis at [facility] - Consultation Date/Type/Reason Admit Date/Time Feb 21, 2019 at 20:44 Initial Consult Date 02/24/19 Date/Time of Note DATE: 02/24/19 TIME: 14:32 24 HR Interval Summary Free Text/Dictation Getting HD now Exam/Review of Systems Exam Vitals Vital Signs Date Temp Pulse Resp B/P (MAP) Pulse Ox O2 O2 Flow FiO2 Time Delivery Rate 02/24/19 99.1 58 18 136/63 98 Nasal 2.0 13:30 (87) Cannula Intake and Output 02/23/19 02/23/19 02/24/19 1515:00 23:00 07:00 IntakeIntake Total 550 ml 600 ml OutputOutput Total 2700 ml BalanceBalance -2150 ml 600 ml Exam Respiratory: clear to auscultation, diminished breath sounds Cardiovascular: regular rate and rhythm Gastrointestinal: soft Extremities: edema (+++) Results Result Diagram: 02/24/19 0624 02/24/19 0624 Results 24hrs Laboratory Tests Test 02/23/19 17:27 02/23/19 20:01 02/24/19 06:24 02/24/19 08:06 Bedside Glucose 128 70 114 White Blood Count 3.7 L Red Blood Count 2.50 L Hemoglobin 7.7 L Hematocrit 23.5 L Mean Corpuscular 94.0 Volume Mean Corpuscular 30.8 Hemoglobin Mean Corpuscular 32.8 Hemoglobin Concent Red Cell 13.5 Distribution Width Platelet Count 105 L Mean Platelet Volume 13.4 H Immature 0.300 Granulocytes % Neutrophils % 67.7 Lymphocytes % 15.5 Monocytes % 13.3 H Eosinophils % 2.7 Basophils % 0.5 Nucleated Red Blood 0.0 Cells % Immature 0.010 Granulocytes # Neutrophils # 2.5 Lymphocytes # 0.6 L Monocytes # 0.5 Eosinophils # 0.1 Basophils # 0.0 Nucleated Red Blood 0.0 Cells # Sodium Level 139 Potassium Level 4.7 Chloride Level 104 Carbon Dioxide Level 26 Anion Gap 9 Blood Urea Nitrogen 75 H Creatinine 8.26 H Est Glomerular 7 L Filtrat Rate mL/min Glucose Level 102 # Calcium Level 7.5 L Phosphorus Level 7.4 H Test 02/24/19 12:13 Bedside Glucose 124 Medications Medication Current Medications IV Flush (NS 3 ml) 3 ml PER PROTOCOL IV ; Start 02/21/19 at 23:00 Ondansetron HCl (Zofran Inj) 4 mg Q6H PRN IV NAUSEA/VOMITING Last administered on 02/23/19 21:23; Admin Dose 4 MG; Start 02/21/19 at 23:00 Acetaminophen (Tylenol Tab) 650 mg Q6H PRN PO .PAIN 1-3 OR TEMP; Start 02/21/19 at 23:00 Albuterol/ Ipratropium (Duoneb) 3 ml Q2H RESP THERAPY PRN HHN SHORTNESS OF BREATH; Start 02/21/19 at 23:00 Amlodipine Besylate (Norvasc) 10 mg DAILY PO Last administered on 02/24/19 08:15; Admin Dose 10 MG; Start 02/22/19 at 09:00 Aspirin (Halfprin) 81 mg DAILY PO Last administered on 02/24/19 08:33; Admin Dose 81 MG; Start 02/22/19 at 09:00 Atorvastatin Calcium (Lipitor) 40 mg QHS PO Last administered on 02/23/19 22:25; Admin Dose 40 MG; Start 02/22/19 at 21:00 Bumetanide (Bumex) 1 mg DAILY PO Last administered on 02/24/19 08:13; Admin Dose 1 MG; Start 02/22/19 at 09:00 Carvedilol (Coreg) 25 mg BID PO Last administered on 02/24/19 08:14; Admin Dose 25 MG; Start 02/21/19 at 23:00 Hydralazine HCl (Apresoline) 25 mg TID PO Last administered on 02/24/19 13:51; Admin Dose 25 MG; Start 02/21/19 at 23:00 Losartan Potassium (Cozaar) 25 mg DAILY PO Last administered on 4/29/19at 08:13; Admin Dose 25 MG; Start 02/22/19 at 09:00 Diagnostic Test (Pha) (Accu-Chek) 1 ea 02 XX ; Start 02/22/19 at 02:00 Insulin Glargine (Lantus) 12 units DAILY@0800 SC Last administered on 02/24/19 08:09; Admin Dose 12 UNITS; Start 02/22/19 at 08:00 Insulin Aspart (Novolog Insulin Pen) 5 unit WITH MEALS SC Last administered on 02/24/19 12:27; Admin Dose 5 UNIT; Start 02/22/19 at 07:55 Insulin Aspart (Novolog Insulin Pen) NOVOLOG *MILD* ALGORITHM WITH MEALS BEDTIME SC Last administered on 02/22/19 13:09; Admin Dose 1 UNIT; Start 02/22/19 at 07:55 Miscellaneous Information 1 ea NOTE XX ; Start 02/21/19 at 23:30 Glucose (Glutose) 15 gm Q15M PRN PO DECREASED GLUCOSE; Start 02/21/19 at 23:30 Glucose (Glutose) 22.5 gm Q15M PRN PO DECREASED GLUCOSE; Start 02/21/19 at 23:30 Dextrose (D50w Syringe) 25 ml Q15M PRN IV DECREASED GLUCOSE; Start 02/21/19 at 23:30 Dextrose (D50w Syringe) 50 ml Q15M PRN IV DECREASED GLUCOSE; Start 02/21/19 at 23:30 Glucagon (Glucagen) 1 mg Q15M PRN IM DECREASED GLUCOSE; Start 02/21/19 at 23:30 Glucose (Glutose) 15 gm Q15M PRN BUCCAL DECREASED GLUCOSE; Start 02/21/19 at 23:30 Miscellaneous Information Patients own medicat... BID@10,16 XX ; Start 02/22/19 at 10:00 Nicotine (Nicoderm 14 Mg/ 24hr) 1 patch DAILY TRANSDERM Last administered on 02/24/19at 08:13; Admin Dose 1 PATCH; Start 02/22/19 at 13:30 Epoetin Rafiq-epbx (Retacrit (Esrd)) 4,000 unit MoWeFr@1700 SC ; Start 02/24/19 at 17:00 Heparin Sodium (Porcine) (Heparin (1000 Units/ml)) 4,500 unit PRN PRN CATHETER Dialysis Last administered on 02/24/19at 13:34; Admin Dose 4,500 UNIT; Start 02/23/19 at 22:30 Mannitol 50 ml @ 50 mls/5 min WITH DIALYSIS PRN IV DISEQUILIBRIUM SYNDROME PPX Last administered on 02/24/19at 11:21; Admin Dose 50 MLS/5 MIN; Start 02/24/19 at 11:30 Calcium Acetate (Phoslo) 1,334 mg WITH MEALS PO ; Start 02/24/19 at 17:55 PATRICIA TESFAYE MD Feb 24, 2019 14:34
--- NOTE | 2019-02-24 17:43 | PN ---
Date/Time of Note Date/Time of Note DATE: 02/24/19 TIME: 17:41 Assessment/Plan VTE Prophylaxis Risk score (from Nsg)>0 risk: 4 SCD applied (from Ns): Yes Pharmacological prophylaxis: NA/contraindicated Pharm contraindication: low risk/ambulating Lines/Catheters [facility]from [facility] [place] [facility] Urinary Cath still in place: No Assessment/Plan Assessment/Plan 54-year-old male with a history of hypertension, diabetes, dyslipidemia, ESRD who was supposed to be on dialysis, who presents with: 1. Volume overload state-slowly improving after getting dialysis here as an inpatient, patient was initiated on dialysis in September of last year. Unfortunately, patient apparently never followed up after that. -Follow-up recommendations from nephrology consult for dialysis schedule while here in the hospital. Of note, patient still has right chest tunneled catheter -Duo nebs as needed, case management also contacted to set up patient's dialysis as an outpatient 2. ESRD: See #1 3. Hypertensive urgency: Resolved -Continue current blood pressure medicines, adjust BP meds as needed. Of note blood pressure expected to be even better with dialysis 4. Diabetes: A1c equals 6.3 -Monitor sugars continue insulin while in-house 5. Dyslipidemia: Continue statin 6. Smoking history: Counseled on cessation - nicotine patch Dispo: Anticipate discharge tomorrow pending HD placement. Result Diagram: 02/24/1962302/24/19623 Subjective 24 Hr Interval Summary Free Text/Dictation The patient is pleasant. Agreeable to get dialysis after discharge. Getting HD today. Exam/Review of Systems Exam Vitals Vital Signs Date Temp Pulse Resp B/P (MAP) Pulse Ox O2 O2 Flow FiO2 Time Delivery Rate 02/24/19 98.3 60 20 139/64 95 15:56 (89) 02/24/19 Nasal 2.0 13:30 Cannula Intake and Output 02/23/19 02/23/19 02/24/19 1515:00 23:00 07:00 IntakeIntake Total 550 ml 600 ml OutputOutput Total 2700 ml BalanceBalance -2150 ml 600 ml Exam Constitutional: Lying in bed, no acute distress HEENT:Normocephalic. Atraumatic.Pupils were equal round reactive to light. Neck: No nuchal rigidity. No lymphadenopathy. No posterior cervical spine tenderness or step-offs. Respiratory: clear to auscultation bilaterally. No rhonchi. No rales. No wheezing. Cardiovascular: Regular rate regular rhythm.No murmurs. No rubs were appreciated.S1, S2 normal. GI: Abdomen was soft. Nontender. Non Distended. No rebound. No guarding. Bowel sounds were present and normal. Muscle skeletal: Full range of motion of both the upper and lower extremities bilaterally.Normal muscle tone.No assymetrical calf tenderness or swelling. Skin: No petechia, no purpura. No lesions on the palms or the soles of the feet. No maculopapular rash. Right tunneled chest wall catheter was in place. Musculoskeletal: 1+ pitting edema bilateral lower extremities to the mid calves Results Results 24hrs Laboratory Tests Test 02/23/19 20:01 02/24/19 06:24 02/24/19 08:06 02/24/19 12:13 Bedside Glucose 70 114 124 White Blood Count 3.7 L Red Blood Count 2.50 L Hemoglobin 7.7 L Hematocrit 23.5 L Mean Corpuscular 94.0 Volume Mean Corpuscular 30.8 Hemoglobin Mean Corpuscular 32.8 Hemoglobin Concent Red Cell 13.5 Distribution Width Platelet Count 105 L Mean Platelet Volume 13.4 H Immature 0.300 Granulocytes % Neutrophils % 67.7 Lymphocytes % 15.5 Monocytes % 13.3 H Eosinophils % 2.7 Basophils % 0.5 Nucleated Red Blood 0.0 Cells % Immature 0.010 Granulocytes # Neutrophils # 2.5 Lymphocytes # 0.6 L Monocytes # 0.5 Eosinophils # 0.1 Basophils # 0.0 Nucleated Red Blood 0.0 Cells # Sodium Level 139 Potassium Level 4.7 Chloride Level 104 Carbon Dioxide Level 26 Anion Gap 9 Blood Urea Nitrogen 75 H Creatinine 8.26 H Est Glomerular 7 L Filtrat Rate mL/min Glucose Level 102 # Calcium Level 7.5 L Phosphorus Level 7.4 H Medications Medication Current Medications IV Flush (NS 3 ml) 3 ml PER PROTOCOL IV ; Start 02/21/19 at 23:00 Ondansetron HCl (Zofran Inj) 4 mg Q6H PRN IV NAUSEA/VOMITING Last administered on 02/23/19at 21:23; Admin Dose 4 MG; Start 02/21/19 at 23:00 Acetaminophen (Tylenol Tab) 650 mg Q6H PRN PO .PAIN 1-3 OR TEMP; Start 02/21/19 at 23:00 Albuterol/ Ipratropium (Duoneb) 3 ml Q2H RESP THERAPY PRN HHN SHORTNESS OF BREATH; Start 02/21/19 at 23:00 Amlodipine Besylate (Norvasc) 10 mg DAILY PO Last administered on 02/24/19 08:15; Admin Dose 10 MG; Start 02/22/19 at 09:00 Aspirin (Halfprin) 81 mg DAILY PO Last administered on 02/24/19 08:33; Admin Dose 81 MG; Start 02/22/19 at 09:00 Atorvastatin Calcium (Lipitor) 40 mg QHS PO Last administered on 02/23/19 22:25; Admin Dose 40 MG; Start 02/22/19 at 21:00 Bumetanide (Bumex) 1 mg DAILY PO Last administered on 02/24/19 08:13; Admin Dose 1 MG; Start 02/22/19 at 09:00 Carvedilol (Coreg) 25 mg BID PO Last administered on 02/24/19 08:14; Admin Dose 25 MG; Start 02/21/19 at 23:00 Hydralazine HCl (Apresoline) 25 mg TID PO Last administered on 02/24/19 13:51; Admin Dose 25 MG; Start 02/21/19 at 23:00 Losartan Potassium (Cozaar) 25 mg DAILY PO Last administered on 02/24/19 08 :13; Admin Dose 25 MG; Start 02/22/19 at 09:00 Diagnostic Test (Pha) (Accu-Chek) 1 ea 02 XX ; Start 02/22/19 at 02:00 Insulin Glargine (Lantus) 12 units DAILY@0800 SC Last administered on 02/24/19 08:09; Admin Dose 12 UNITS; Start 02/22/19 at 08:00 Insulin Aspart (Novolog Insulin Pen) 5 unit WITH MEALS SC Last administered on 02/24/19 12:27; Admin Dose 5 UNIT; Start 02/22/19 at 07:55 Insulin Aspart (Novolog Insulin Pen) NOVOLOG *MILD* ALGORITHM WITH MEALS BEDTIME SC Last administered on 02/22/19 13:09; Admin Dose 1 UNIT; Start 02/22/19 at 07:55 Miscellaneous Information 1 ea NOTE XX ; Start 02/21/19 at 23:30 Glucose (Glutose) 15 gm Q15M PRN PO DECREASED GLUCOSE; Start 02/21/19 at 23:30 Glucose (Glutose) 22.5 gm Q15M PRN PO DECREASED GLUCOSE; Start 02/21/19 at 23:30 Dextrose (D50w Syringe) 25 ml Q15M PRN IV DECREASED GLUCOSE; Start 02/21/19 at 23:30 Dextrose (D50w Syringe) 50 ml Q15M PRN IV DECREASED GLUCOSE; Start 02/21/19 at 23:30 Glucagon (Glucagen) 1 mg Q15M PRN IM DECREASED GLUCOSE; Start 02/21/19 at 23:30 Glucose (Glutose) 15 gm Q15M PRN BUCCAL DECREASED GLUCOSE; Start 02/21/19 at 23:30 Miscellaneous Information Patients own medicat... BID@10,16 XX ; Start 02/22/19 at 10:00 Nicotine (Nicoderm 14 Mg/ 24hr) 1 patch DAILY TRANSDERM Last administered on 02/24/19at 08:13; Admin Dose 1 PATCH; Start 02/22/19 at 13:30 Epoetin Rafiq-epbx (Retacrit (Esrd)) 4,000 unit MoWeFr@1700 SC ; Start 02/24/19 at 17:00 Heparin Sodium (Porcine) (Heparin (1000 Units/ml)) 4,500 unit PRN PRN CATHETER Dialysis Last administered on 02/24/19at 13:34; Admin Dose 4,500 UNIT; Start 02/23/19 at 22:30 Mannitol 50 ml @ 50 mls/5 min WITH DIALYSIS PRN IV DISEQUILIBRIUM SYNDROME PPX Last administered on 02/24/19at 11:21; Admin Dose 50 MLS/5 MIN; Start 02/24/19 at 11:30 Calcium Acetate (Phoslo) 1,334 mg WITH MEALS PO ; Start 02/24/19 at 17:55 SHARON MEHTA MD Feb 24, 2019 17:42
[2019-02-24] MEDS: EPOETIN ALFA-EPBX (ESRD) 4,000 UNIT/ML VIAL SC SCH (17:59)
[2019-02-24] MEDS: CALCIUM ACETATE 667 MG CAP PO SCH (18:00)
[2019-02-24] MEDS: ATORVASTATIN 40 MG TAB PO SCH (21:16)
[2019-02-25] VITALS (11 sets, daily range): BP systolic 124–144; BP diastolic 58–66; PULSE 58–68; RESP 16–20
[2019-02-25] MEDS: ACCU-CHEK XX SCH (02:00)
[2019-02-25] MEDS: INSULIN ASPART [NOVOLOG] 3 ML PEN SC SCH ×7 (07:55→20:03)
[2019-02-25] MEDS: NICOTINE (14 MG/24 HR) PATCH TRANSDERM SCH (08:23)
[2019-02-25] MEDS: CALCIUM ACETATE 667 MG CAP PO SCH ×3 (08:24→17:46)
[2019-02-25] MEDS: AMLODIPINE 10 MG TAB PO SCH (08:24)
[2019-02-25] MEDS: BUMETANIDE 1 MG TAB PO SCH (08:26)
[2019-02-25] MEDS: LOSARTAN 25 MG TAB PO SCH (08:27)
[2019-02-25] MEDS: INSULIN GLARGINE [LANTus] (100 UNITS/ML) SYG SC SCH (08:29)
[2019-02-25] MEDS: ASPIRIN (EC) 81 MG TAB PO SCH (08:30)
--- NOTE | 2019-02-25 09:48 | PN ---
Date/Time of Note Date/Time of Note DATE: 02/25/19 TIME: 09:48 Assessment/Plan Lines/Catheters IV Catheter Type (from Nrsg): Permacath Vicente in Place (from Nrsg): No Assessment/Plan Assessment/Plan ESRD Plan for AVF placement tomorrow Subjective 24 Hr Interval Summary Constitutional: improved Pain Control: mild Exam/Review of Systems Vital Signs Vitals Vital Signs Date Temp Pulse Resp B/P (MAP) Pulse Ox O2 O2 Flow FiO2 Time Delivery Rate 02/25/19 98.8 62 18 124/58 95 Room Air 07:28 (80) 02/25/19 21 00:22 02/24/19 2.0 20:25 Intake and Output 02/24/19 02/24/19 02/25/19 1515:00 23:00 07:00 IntakeIntake Total 900 ml 750 ml OutputOutput Total 2700 ml 300 ml BalanceBalance -2700 ml 900 ml 450 ml Exam Eyes: nl conjunctiva, EOMI, nl lids, nl sclera ENMT: nl external ears & nose, nl lips & teeth, nl nasal mucosa & septum, mucosa pink and moist Neck: supple, non-tender Respiratory: clear to auscultation, normal air movement Cardiovascular: regular rate and rhythm, nl pulses Gastrointestinal: soft, nl liver, spleen, non-tender Musculoskeletal: nl extremities to inspection, nl gait and stance Results Result Diagram: 02/25/19 0646 02/25/19 0646 ENRIQUE LACY MD Feb 25, 2019 09:48
--- NOTE | 2019-02-25 13:19 | CONS ---
Assessment/Plan Assessment/Plan Assessment/Plan (Daily) 1. The patient has end-stage renal disease. Noncompliant with follow-up never followed up with the dialysis center 2. Hypertension. 3. Diabetes mellitus. 4. Anasarca. 5. Volume overload. 6. Hyperkalemia. 7. Anemia of chronic kidney disease. 8. Diabetes mellitus. 9. Hypoalbuminemia. 10. Uremic symptoms. 11 2 HPT plan -HD tmw, will put on MWF schedule here - Fistula placement tmw renally dose all meds -phos binder -Patient will be compliant with dialysis now - cw Losartan/coreg -recycling program manager to set up hemodialysis at [facility], in progress Consultation Date/Type/Reason Admit Date/Time Feb 21, 2019 at 20:44 Initial Consult Date 02/24/19 Date/Time of Note DATE: 02/25/19 TIME: 13:17 24 HR Interval Summary Free Text/Dictation S/P hd yesterday Doing well fistula tmw Exam/Review of Systems Exam Vitals Vital Signs Date Temp Pulse Resp B/P (MAP) Pulse Ox O2 O2 Flow FiO2 Time Delivery Rate 02/25/19 98.6 60 18 133/64 95 Room Air 11:27 (87) 02/25/19 2.0 08:00 02/25/19 21 00:22 Intake and Output 02/24/19 02/24/19 02/25/19 1414:59 22:59 06:59 IntakeIntake Total 900 ml 750 ml OutputOutput Total 2700 ml 300 ml BalanceBalance -2700 ml 900 ml 450 ml Exam Respiratory: clear to auscultation, diminished breath sounds Cardiovascular: regular rate and rhythm Gastrointestinal: soft Extremities: edema (+++) Results Result Diagram: 02/25/19 0646 02/25/1946 Results 24hrs Laboratory Tests Test 02/24/19 18:02 02/24/19 21:13 02/25/19 06:46 02/25/19 08:14 Bedside Glucose 128 137 121 White Blood Count 4.3 L Red Blood Count 2.57 L Hemoglobin 7.7 L Hematocrit 24.7 L Mean Corpuscular 96.1 Volume Mean Corpuscular 30.0 Hemoglobin Mean Corpuscular 31.2 L Hemoglobin Concent Red Cell 13.5 Distribution Width Platelet Count 95 L Mean Platelet Volume 13.2 H Immature 0.200 Granulocytes % Neutrophils % 65.6 Lymphocytes % 15.0 Monocytes % 15.7 H Eosinophils % 3.0 Basophils % 0.5 Nucleated Red Blood 0.0 Cells % Immature 0.010 Granulocytes # Neutrophils # 2.8 Lymphocytes # 0.6 L Monocytes # 0.7 Eosinophils # 0.1 Basophils # 0.0 Nucleated Red Blood 0.0 Cells # Sodium Level 139 Potassium Level 4.6 Chloride Level 103 Carbon Dioxide Level 27 Anion Gap 9 Blood Urea Nitrogen 71 H Creatinine 7.10 H Est Glomerular 8 L Filtrat Rate mL/min Glucose Level 96 Calcium Level 7.5 L Test 02/25/19 12:08 Bedside Glucose 81 Medications Medication Current Medications IV Flush (NS 3 ml) 3 ml PER PROTOCOL IV ; Start 02/21/19 at 23:00 Ondansetron HCl (Zofran Inj) 4 mg Q6H PRN IV NAUSEA/VOMITING Last administered on 02/23/19 21:23; Admin Dose 4 MG; Start 02/21/19 at 23:00 Acetaminophen (Tylenol Tab) 650 mg Q6H PRN PO .PAIN 1-3 OR TEMP; Start 02/21/19 at 23:00 Albuterol/ Ipratropium (Duoneb) 3 ml Q2H RESP THERAPY PRN HHN SHORTNESS OF BREATH; Start 02/21/19 at 23:00 Amlodipine Besylate (Norvasc) 10 mg DAILY PO Last administered on 02/25/19 08:24; Admin Dose 10 MG; Start 02/22/19 at 09:00 Aspirin (Halfprin) 81 mg DAILY PO Last administered on 02/25/19 08:30; Admin Dose 81 MG; Start 02/22/19 at 09:00 Atorvastatin Calcium (Lipitor) 40 mg QHS PO Last administered on 02/24/19 21:16; Admin Dose 40 MG; Start 02/22/19 at 21:00 Bumetanide (Bumex) 1 mg DAILY PO Last administered on 02/25/19 08:26; Admin Dose 1 MG; Start 02/22/19 at 09:00 Carvedilol (Coreg) 25 mg BID PO Last administered on 02/25/19 08:25; Admin Dose 25 MG; Start 02/21/19 at 23:00 Hydralazine HCl (Apresoline) 25 mg TID PO Last administered on 02/25/19at 12:11; Admin Dose 25 MG; Start 02/21/19 at 23:00 Losartan Potassium (Cozaar) 25 mg DAILY PO Last administered on 02/25/19 08:27; Admin Dose 25 MG; Start 02/22/19 at 09:00 Diagnostic Test (Pha) (Accu-Chek) 1 ea 02 XX ; Start 02/22/19 at 02:00 Insulin Glargine (Lantus) 12 units DAILY@0800 SC Last administered on 02/25/19 08:29; Admin Dose 12 UNITS; Start 02/22/19 at 08:00 Insulin Aspart (Novolog Insulin Pen) 5 unit WITH MEALS SC Last administered on 02/25/19 12:23; Admin Dose 5 UNIT; Start 02/22/19 at 07:55 Insulin Aspart (Novolog Insulin Pen) NOVOLOG *MILD* ALGORITHM WITH MEALS BEDTIME SC Last administered on 02/22/19 13:09; Admin Dose 1 UNIT; Start 02/22/19 at 07:55 Miscellaneous Information 1 ea NOTE XX ; Start 02/21/19 at 23:30 Glucose (Glutose) 15 gm Q15M PRN PO DECREASED GLUCOSE; Start 02/21/19 at 23:30 Glucose (Glutose) 22.5 gm Q15M PRN PO DECREASED GLUCOSE; Start 02/21/19 at 23:30 Dextrose (D50w Syringe) 25 ml Q15M PRN IV DECREASED GLUCOSE; Start 02/21/19 at 23:30 Dextrose (D50w Syringe) 50 ml Q15M PRN IV DECREASED GLUCOSE; Start 02/21/19 at 23:30 Glucagon (Glucagen) 1 mg Q15M PRN IM DECREASED GLUCOSE; Start 02/21/19 at 23:30 Glucose (Glutose) 15 gm Q15M PRN BUCCAL DECREASED GLUCOSE; Start 02/21/19 at 23:30 Miscellaneous Information Patients own medicat... BID@10,16 XX ; Start 02/22/19 at 10:00 Nicotine (Nicoderm 14 Mg/ 24hr) 1 patch DAILY TRANSDERM Last administered on 02/25/19at 08:23; Admin Dose 1 PATCH; Start 02/22/19 at 13:30 Epoetin Rafiq-epbx (Retacrit (Esrd)) 4,000 unit MoWeFr@1700 SC Last administered on 02/24/19 17:59; Admin Dose 4,000 UNIT; Start 02/24/19 at 17:00 Heparin Sodium (Porcine) (Heparin (1000 Units/ml)) 4,500 unit PRN PRN CATHETER Dialysis Last administered on 02/24/19 13:34; Admin Dose 4,500 UNIT; Start 02/23/19 at 22:30 Mannitol 50 ml @ 50 mls/5 min WITH DIALYSIS PRN IV DISEQUILIBRIUM SYNDROME PPX Last administered on 02/24/19at 11:21; Admin Dose 50 MLS/5 MIN; Start 02/24/19 at 11:30 Calcium Acetate (Phoslo) 1,334 mg WITH MEALS PO Last administered on 02/25/19 12:11; Admin Dose 1,334 MG; Start 02/24/19 at 17:55 PATRICIA TESFAYE MD Feb 25, 2019 13:19
--- NOTE | 2019-02-25 16:46 | PN ---
Date/Time of Note Date/Time of Note DATE: 02/25/19 TIME: 16:45 Assessment/Plan VTE Prophylaxis Risk score (from Nsg)>0 risk: 4 SCD applied (from Nsg): Yes Pharmacological prophylaxis: heparin Lines/Catheters IV Catheter Type (from Nrsg): Permacath Urinary Cath still in place: No Assessment/Plan Assessment/Plan 54-year-old male with a history of hypertension, diabetes, dyslipidemia, ESRD who was supposed to be on dialysis, who presents with: 1. Volume overload state-slowly improving after getting dialysis here as an inpatient, patient was initiated on dialysis in September of last year. Unfortunately, patient apparently never followed up after that. -Follow-up recommendations from nephrology consult for dialysis schedule while here in the hospital. Of note, patient still has right chest tunneled catheter -Duo nebs as needed, case management also contacted to set up patient's dialysis as an outpatient - Plan for AV fistula surgery tomorrow. 2. ESRD: See #1 3. Hypertensive urgency: Resolved -Continue current blood pressure medicines, adjust BP meds as needed. Of note blood pressure expected to be even better with dialysis 4. Diabetes: A1c equals 6.3 -Monitor sugars continue insulin while in-house 5. Dyslipidemia: Continue statin 6. Smoking history: Counseled on cessation - nicotine patch Dispo: Anticipate discharge tomorrow pending HD placement. Result Diagram: 02/25/19 0646 02/25/19 0646 Subjective 24 Hr Interval Summary Free Text/Dictation No acute overnight events. Plan for AV fistula tomorrow. Exam/Review of Systems Exam Vitals Vital Signs Date Temp Pulse Resp B/P (MAP) Pulse Ox O2 O2 Flow FiO2 Time Delivery Rate 02/25/19 66 16:00 02/25/19 98.9 20 134/61 92 Room Air 15:34 (85) 02/25/19 2.0 08:00 02/25/19 21 00:22 Intake and Output 02/24/19 02/24/19 02/25/19 1414:59 22:59 06:59 IntakeIntake Total 900 ml 750 ml OutputOutput Total 2700 ml 300 ml BalanceBalance -2700 ml 900 ml 450 ml Exam Constitutional: Lying in bed, no acute distress HEENT:Normocephalic. Atraumatic.Pupils were equal round reactive to light. Neck: No nuchal rigidity. No lymphadenopathy. No posterior cervical spine tenderness or step-offs. Respiratory: clear to auscultation bilaterally. No rhonchi. No rales. No wheezing. Cardiovascular: Regular rate regular rhythm.No murmurs. No rubs were appreciated.S1, S2 normal. GI: Abdomen was soft. Nontender. Non Distended. No rebound. No guarding. Bowel sounds were present and normal. Muscle skeletal: Full range of motion of both the upper and lower extremities bilaterally.Normal muscle tone.No assymetrical calf tenderness or swelling. Skin: No petechia, no purpura. No lesions on the palms or the soles of the feet. No maculopapular rash. Right tunneled chest wall catheter was in place. Musculoskeletal: 1+ pitting edema bilateral lower extremities to the mid calves Results Results 24hrs Laboratory Tests Test 02/24/19 18:02 02/24/19 21:13 02/25/19 06:46 02/25/19 08:14 Bedside Glucose 128 137 121 White Blood Count 4.3 L Red Blood Count 2.57 L Hemoglobin 7.7 L Hematocrit 24.7 L Mean Corpuscular 96.1 Volume Mean Corpuscular 30.0 Hemoglobin Mean Corpuscular 31.2 L Hemoglobin Concent Red Cell 13.5 Distribution Width Platelet Count 95 L Mean Platelet Volume 13.2 H Immature 0.200 Granulocytes % Neutrophils % 65.6 Lymphocytes % 15.0 Monocytes % 15.7 H Eosinophils % 3.0 Basophils % 0.5 Nucleated Red Blood 0.0 Cells % Immature 0.010 Granulocytes # Neutrophils # 2.8 Lymphocytes # 0.6 L Monocytes # 0.7 Eosinophils # 0.1 Basophils # 0.0 Nucleated Red Blood 0.0 Cells # Sodium Level 139 Potassium Level 4.6 Chloride Level 103 Carbon Dioxide Level 27 Anion Gap 9 Blood Urea Nitrogen 71 H Creatinine 7.10 H Est Glomerular 8 L Filtrat Rate mL/min Glucose Level 96 Calcium Level 7.5 L Test 02/25/19 12:08 Bedside Glucose 81 Medications Medication Current Medications IV Flush (NS 3 ml) 3 ml PER PROTOCOL IV ; Start 02/21/19 at 23:00 Ondansetron HCl (Zofran Inj) 4 mg Q6H PRN IV NAUSEA/VOMITING Last administered on 02/23/19at 21:23; Admin Dose 4 MG; Start 02/21/19 at 23:00 Acetaminophen (Tylenol Tab) 650 mg Q6H PRN PO .PAIN 1-3 OR TEMP; Start 02/21/19 at 23:00 Albuterol/ Ipratropium (Duoneb) 3 ml Q2H RESP THERAPY PRN HHN SHORTNESS OF BREATH; Start 02/21/19 at 23:00 Amlodipine Besylate (Norvasc) 10 mg DAILY PO Last administered on 02/25/19 08:24; Admin Dose 10 MG; Start 02/22/19 at 09:00 Aspirin (Halfprin) 81 mg DAILY PO Last administered on 02/25/19 08:30; Admin Dose 81 MG; Start 02/22/19 at 09:00 Atorvastatin Calcium (Lipitor) 40 mg QHS PO Last administered on 02/24/19 21:16; Admin Dose 40 MG; Start 02/22/19 at 21:00 Bumetanide (Bumex) 1 mg DAILY PO Last administered on 02/25/19 08:26; Admin Dose 1 MG; Start 02/22/19 at 09:00 Carvedilol (Coreg) 25 mg BID PO Last administered on 02/25/19 08:25; Admin Dose 25 MG; Start 02/21/19 at 23:00 Hydralazine HCl (Apresoline) 25 mg TID PO Last administered on 02/25/19 12:11; Admin Dose 25 MG; Start 02/21/19 at 23:00 Losartan Potassium (Cozaar) 25 mg DAILY PO Last administered on 02/25/19 08:27; Admin Dose 25 MG; Start 02/22/19 at 09:00 Diagnostic Test (Pha) (Accu-Chek) 1 ea 02 XX ; Start 02/22/19 at 02:00 Insulin Glargine (Lantus) 12 units DAILY@0800 SC Last administered on 02/25/19 08:29; Admin Dose 12 UNITS; Start 02/22/19 at 08:00 Insulin Aspart (Novolog Insulin Pen) 5 unit WITH MEALS SC Last administered on 02/25/19 12:23; Admin Dose 5 UNIT; Start 02/22/19 at 07:55 Insulin Aspart (Novolog Insulin Pen) NOVOLOG *MILD* ALGORITHM WITH MEALS BEDTIME SC Last administered on 4/27/19at 13:09; Admin Dose 1 UNIT; Start 02/22/19 at 07:55 Miscellaneous Information 1 ea NOTE XX ; Start 02/21/19 at 23:30 Glucose (Glutose) 15 gm Q15M PRN PO DECREASED GLUCOSE; Start 02/21/19 at 23:30 Glucose (Glutose) 22.5 gm Q15M PRN PO DECREASED GLUCOSE; Start 02/21/19 at 23:30 Dextrose (D50w Syringe) 25 ml Q15M PRN IV DECREASED GLUCOSE; Start 02/21/19 at 23:30 Dextrose (D50w Syringe) 50 ml Q15M PRN IV DECREASED GLUCOSE; Start 02/21/19 at 23:30 Glucagon (Glucagen) 1 mg Q15M PRN IM DECREASED GLUCOSE; Start 02/21/19 at 23:30 Glucose (Glutose) 15 gm Q15M PRN BUCCAL DECREASED GLUCOSE; Start 02/21/19 at 23:30 Miscellaneous Information Patients own medicat... BID@10,16 XX ; Start 02/22/19 at 10:00 Nicotine (Nicoderm 14 Mg/ 24hr) 1 patch DAILY TRANSDERM Last administered on 02/25/19 08:23; Admin Dose 1 PATCH; Start 02/22/19 at 13:30 Epoetin Rafiq-epbx (Retacrit (Esrd)) 4,000 unit MoWeFr@1700 SC Last administered on 02/24/19at 17:59; Admin Dose 4,000 UNIT; Start 02/24/19 at 17:00 Heparin Sodium (Porcine) (Heparin (1000 Units/ml)) 4,500 unit PRN PRN CATHETER Dialysis Last administered on 02/24/19 13:34; Admin Dose 4,500 UNIT; Start 02/23/19 at 22:30 Mannitol 50 ml @ 50 mls/5 min WITH DIALYSIS PRN IV DISEQUILIBRIUM SYNDROME PPX Last administered on 02/24/19 11:21; Admin Dose 50 MLS/5 MIN; Start 02/24/19 at 11:30 Calcium Acetate (Phoslo) 1,334 mg WITH MEALS PO Last administered on 02/25/19 12:11; Admin Dose 1,334 MG; Start 02/24/19 at 17:55 SHARON MEHTA MD Feb 25, 2019 16:46
[2019-02-25] MEDS: ATORVASTATIN 40 MG TAB PO SCH (20:02)
[2019-02-26] VITALS (35 sets, daily range): BP systolic 125–194; BP diastolic 59–86; PULSE 54–69; RESP 16–20
[2019-02-26] MEDS: ACCU-CHEK XX SCH (01:03)
[2019-02-26] MEDS: INSULIN ASPART [NOVOLOG] 3 ML PEN SC SCH ×7 (07:55→20:28)
[2019-02-26] MEDS: CALCIUM ACETATE 667 MG CAP PO SCH ×3 (07:55→17:55)
[2019-02-26] MEDS: INSULIN GLARGINE [LANTus] (100 UNITS/ML) SYG SC SCH (08:00)
[2019-02-26] MEDS: LOSARTAN 25 MG TAB PO SCH (09:00)
[2019-02-26] MEDS: AMLODIPINE 10 MG TAB PO SCH (09:00)
[2019-02-26] MEDS: BUMETANIDE 1 MG TAB PO SCH (09:23)
[2019-02-26] MEDS: ASPIRIN (EC) 81 MG TAB PO SCH (09:24)
[2019-02-26] MEDS: NICOTINE (14 MG/24 HR) PATCH TRANSDERM SCH (09:25)
--- NOTE | 2019-02-26 15:40 | PN ---
Date/Time of Note Date/Time of Note DATE: 02/26/19 TIME: 15:38 Assessment/Plan VTE Prophylaxis Risk score (from Nsg)>0 risk: 2 SCD applied (from Nsg): Yes Pharmacological prophylaxis: NA/contraindicated Pharm contraindication: low risk/ambulating Lines/Catheters IV Catheter Type (from Nrs): permacath Urinary Cath still in place: No Assessment/Plan Assessment/Plan 54-year-old male with a history of hypertension, diabetes, dyslipidemia, ESRD who was supposed to be on dialysis, who presents with: 1. Volume overload state-slowly improving after getting dialysis here as an inpatient, patient was initiated on dialysis in September of last year. Unfortunately, patient apparently never followed up after that. -Follow-up recommendations from nephrology consult for dialysis schedule while here in the hospital. Of note, patient still has right chest tunneled catheter -Duo nebs as needed, case management also contacted to set up patient's dialysis as an outpatient - Plan for AV fistula surgery tonight 2. ESRD: See #1 3. Hypertensive urgency: Resolved -Continue current blood pressure medicines, adjust BP meds as needed. Of note blood pressure expected to be even better with dialysis 4. Diabetes: A1c equals 6.3 -Monitor sugars continue insulin while in-house 5. Dyslipidemia: Continue statin 6. Smoking history: Counseled on cessation - nicotine patch Dispo: Anticipate discharge after AV fistula placement. Result Diagram: 02/26/19 0618 02/26/19 0618 Subjective 24 Hr Interval Summary Free Text/Dictation No acute overnight events. Patient doing well. Exam/Review of Systems Exam Vitals Vital Signs Date Temp Pulse Resp B/P (MAP) Pulse Ox O2 O2 Flow FiO2 Time Delivery Rate 02/26/19 63 15:05 02/26/19 18 148/75 98 Room Air 13:15 (99) 02/26/19 98.5 12:02 02/25/19 2.0 21:41 02/25/19 21 00:22 Intake and Output 02/25/19 02/25/19 02/26/19 1515:00 23:00 07:00 IntakeIntake Total 500 ml 400 ml BalanceBalance 500 ml 400 ml Exam Constitutional: Lying in bed, no acute distress HEENT:Normocephalic. Atraumatic.Pupils were equal round reactive to light. Neck: No nuchal rigidity. No lymphadenopathy. No posterior cervical spine tenderness or step-offs. Respiratory: clear to auscultation bilaterally. No rhonchi. No rales. No wheezing. Cardiovascular: Regular rate regular rhythm.No murmurs. No rubs were appreciated.S1, S2 normal. GI: Abdomen was soft. Nontender. Non Distended. No rebound. No guarding. Bowel sounds were present and normal. Muscle skeletal: Full range of motion of both the upper and lower extremities bilaterally.Normal muscle tone.No assymetrical calf tenderness or swelling. Skin: No petechia, no purpura. No lesions on the palms or the soles of the feet. No maculopapular rash. Right tunneled chest wall catheter was in place. Musculoskeletal: 1+ pitting edema bilateral lower extremities to the mid calves Results Results 24hrs Laboratory Tests Test 02/25/19 17:40 02/25/19 20:01 02/26/19 06:18 02/26/19 07:59 Bedside Glucose 111 104 86 White Blood Count 4.4 L Red Blood Count 2.40 L Hemoglobin 7.4 L Hematocrit 22.9 L Mean Corpuscular 95.4 Volume Mean Corpuscular 30.8 Hemoglobin Mean Corpuscular 32.3 Hemoglobin Concent Red Cell Distribution 13.1 Width Platelet Count 90 L Mean Platelet Volume 13.2 H Immature Granulocytes 0.200 % Neutrophils % 71.6 Lymphocytes % 12.8 L Monocytes % 12.4 H Eosinophils % 2.3 Basophils % 0.7 Nucleated Red Blood 0.0 Cells % Immature Granulocytes 0.010 # Neutrophils # 3.1 Lymphocytes # 0.6 L Monocytes # 0.5 Eosinophils # 0.1 Basophils # 0.0 Nucleated Red Blood 0.0 Cells # Sodium Level 137 Potassium Level 5.1 Chloride Level 104 Carbon Dioxide Level 23 Anion Gap 10 Blood Urea Nitrogen 89 H Creatinine 8.21 H Est Glomerular Filtrat 7 L Rate mL/min Glucose Level 72 Calcium Level 7.8 L Test 02/26/19 12:01 Bedside Glucose 125 Medications Medication Current Medications IV Flush (NS 3 ml) 3 ml PER PROTOCOL IV ; Start 02/21/19 at 23:00 Ondansetron HCl (Zofran Inj) 4 mg Q6H PRN IV NAUSEA/VOMITING Last administered on 02/23/19at 21:23; Admin Dose 4 MG; Start 02/21/19 at 23:00 Acetaminophen (Tylenol Tab) 650 mg Q6H PRN PO .PAIN 1-3 OR TEMP; Start 02/21/19 at 23:00 Albuterol/ Ipratropium (Duoneb) 3 ml Q2H RESP THERAPY PRN HHN SHORTNESS OF BREATH; Start 02/21/19 at 23:00 Amlodipine Besylate (Norvasc) 10 mg DAILY PO Last administered on 02/25/19 08:24; Admin Dose 10 MG; Start 02/22/19 at 09:00 Aspirin (Halfprin) 81 mg DAILY PO Last administered on 02/26/19 09:24; Admin Dose 81 MG; Start 02/22/19 at 09:00 Atorvastatin Calcium (Lipitor) 40 mg QHS PO Last administered on 02/25/19 20:02; Admin Dose 40 MG; Start 02/22/19 at 21:00 Bumetanide (Bumex) 1 mg DAILY PO Last administered on 02/26/19 09:23; Admin Dose 1 MG; Start 02/22/19 at 09:00 Carvedilol (Coreg) 25 mg BID PO Last administered on 02/25/19 20:03; Admin Dose 25 MG; Start 02/21/19 at 23:00 Hydralazine HCl (Apresoline) 25 mg TID PO Last administered on 02/25/19 20:03; Admin Dose 25 MG; Start 02/21/19 at 23:00 Losartan Potassium (Cozaar) 25 mg DAILY PO Last administered on 02/25/19 08:27; Admin Dose 25 MG; Start 02/22/19 at 09:00 Diagnostic Test (Pha) (Accu-Chek) 1 ea 02 XX ; Start 02/22/19 at 02:00 Insulin Glargine (Lantus) 12 units DAILY@0800 SC Last administered on 02/25/19 08:29; Admin Dose 12 UNITS; Start 02/22/19 at 08:00 Insulin Aspart (Novolog Insulin Pen) 5 unit WITH MEALS SC Last administered on 02/25/19 17:52; Admin Dose 5 UNIT; Start 02/22/19 at 07:55 Insulin Aspart (Novolog Insulin Pen) NOVOLOG *MILD* ALGORITHM WITH MEALS BEDTIME SC Last administered on 4/27/19at 13:09; Admin Dose 1 UNIT; Start 02/22/19 at 07:55 Miscellaneous Information 1 ea NOTE XX ; Start 02/21/19 at 23:30 Glucose (Glutose) 15 gm Q15M PRN PO DECREASED GLUCOSE; Start 02/21/19 at 23:30 Glucose (Glutose) 22.5 gm Q15M PRN PO DECREASED GLUCOSE; Start 02/21/19 at 23:30 Dextrose (D50w Syringe) 25 ml Q15M PRN IV DECREASED GLUCOSE; Start 02/21/19 at 23:30 Dextrose (D50w Syringe) 50 ml Q15M PRN IV DECREASED GLUCOSE; Start 02/21/19 at 23:30 Glucagon (Glucagen) 1 mg Q15M PRN IM DECREASED GLUCOSE; Start 02/21/19 at 23:30 Glucose (Glutose) 15 gm Q15M PRN BUCCAL DECREASED GLUCOSE; Start 02/21/19 at 23:30 Miscellaneous Information Patients own medicat... BID@10,16 XX ; Start 02/22/19 at 10:00 Nicotine (Nicoderm 14 Mg/ 24hr) 1 patch DAILY TRANSDERM Last administered on 02/26/19 09:25; Admin Dose 1 PATCH; Start 02/22/19 at 13:30 Epoetin Rafiq-epbx (Retacrit (Esrd)) 4,000 unit MoWeFr@1700 SC Last administered on 02/24/19 17:59; Admin Dose 4,000 UNIT; Start 02/24/19 at 17:00 Heparin Sodium (Porcine) (Heparin (1000 Units/ml)) 4,500 unit PRN PRN CATHETER Dialysis Last administered on 02/24/19 13:34; Admin Dose 4,500 UNIT; Start 02/23/19 at 22:30 Mannitol 50 ml @ 50 mls/5 min WITH DIALYSIS PRN IV DISEQUILIBRIUM SYNDROME PPX Last administered on 02/24/19 11:21; Admin Dose 50 MLS/5 MIN; Start 02/24/19 at 11:30 Calcium Acetate (Phoslo) 1,334 mg WITH MEALS PO Last administered on 02/25/19 17:46; Admin Dose 1,334 MG; Start 02/24/19 at 17:55 SHARON MEHTA MD February 26, 2019 15:40
[2019-02-26] MEDS: HEPARIN 1000 UNITS/ML 10 ML INJ CATHETER PRN (16:45)
[2019-02-26] MEDS: EPOETIN ALFA-EPBX (ESRD) 4,000 UNIT/ML VIAL SC SCH (17:00)
[2019-02-26] MEDS: ATORVASTATIN 40 MG TAB PO SCH (19:50)
--- NOTE | 2019-02-26 19:50 | HPN ---
Date/Time of Note Date/Time of Note DATE: 02/26/19 TIME: 19:50 Interval H&P Admission Note Pt. seen H&P reviewed: No system changes ENRIQUE LACY MD February 26, 2019 19:50
[2019-02-26] MEDS ORDERED: GELATIN SIZE 100 SPONGE ONE (20:22)
[2019-02-26] MEDS ORDERED: THROMBIN (BOVINE) 5,000 UNIT VIAL TP ONE (20:22)
[2019-02-26] MEDS ORDERED: BUPIVACAINE 0.25% (MPF) 30 ML INJ ONE (20:22)
[2019-02-26] MEDS ORDERED: LIDOCAINE 1% (MPF) 30 ML INJ ONE (20:22)
[2019-02-26] MEDS ORDERED: HEPARIN 1000 UNITS/ML 10 ML INJ ONE ×2 (20:22→21:45)
--- NOTE | 2019-02-26 21:15 | PREAC ---
Date/Time of Note Date/Time of Note DATE: 02/26/19 TIME: 21:14 Anesthesia Eval and Record Evaluation Time Pre-Procedure Interview DATE: 02/26/19 TIME: 21:14 Age 54 Sex male NPO: 8 hrs Preoperative diagnosis esrd Planned procedure right av fistula Past Medical History Past Medical History: Includes Cardio: HTN, Dyslipidemia Endo: Diabetes Renal: ESRD on dialysis Surgery & Anesthesia Issues No known issue Meds Anticoagulation: No Beta Awilda within 24 hr: Yes Reported Medications Clonidine Hcl* (Clonidine Hcl*) 0.1 Mg Tab, 0.1 MG PO BID, TAB 02/21/19 Amlodipine Besylate* (Amlodipine Besylate*) 10 Mg Tablet, 10 MG PO DAILY, #30 TAB 02/21/19 Insulin Aspart (Novolog Mix ()) 100 Units/Ml Soln, 15 UNIT SC WITH LUNCH, VIAL 02/21/19 Hydralazine Hcl* (Hydralazine Hcl*) 25 Mg Tab, 25 MG PO TID, #90 TAB 02/21/19 Losartan Potassium* (Losartan Potassium*) 25 Mg Tablet, 25 MG PO DAILY, TAB 02/21/19 Carvedilol* (Carvedilol*) 25 Mg Tablet, 25 MG PO BID, #60 TAB 02/21/19 Bumetanide* (Bumetanide*) 1 Mg Tablet, 1 MG PO DAILY, TAB 02/21/19 Atorvastatin* (Atorvastatin*) 40 Mg Tablet, 40 MG PO QHS, #30 TAB 02/21/19 Aspirin* (Aspirin* EC) 81 Mg Tablet.dr, 81 MG PO DAILY, TAB 02/21/19 Discontinued Scripts Insulin Glargine* (Lantus*) 100 Unit/Ml Soln, 4 UNIT SC DAILY, #1 VIAL Prov:ANITHA OJEDA 10/15/18 Calcium Acetate* (Calcium Acetate*) 667 Mg Capsule, 1334 MG PO WITH MEALS, #90 CAP Prov:ANITHA OJEDA 10/15/18 Bumetanide* (Bumetanide*) 1 Mg Tablet, 1 MG PO DAILY, #60 TAB Prov:ANITHA OJEDA 10/15/18 Nitroglycerin* (Nitroglycerin* SL) 0.4 Mg Tab.subl, 1 TAB SL Q5M PRN for CHEST PAIN, #90 TAB Prov:ANITHA OJEDA 10/15/18 Aspirin (Aspirin) 81 Mg Chew, 81 MG PO DAILY, #60 [facility]/15/[facility] Losartan Potassium* (Cozaar*) 25 Mg Tablet, 25 MG PO DAILY, #60 TAB [facility] 10/15/18 Hydralazine Hcl* (Apresoline*) 50 Mg Tab, 25 MG PO TID, #90 TAB [facility] 10/15/18 Carvedilol* (Carvedilol*) 25 Mg Tablet, 25 MG PO BID, #60 TAB [facility] 10/15/18 Atorvastatin* (Atorvastatin*) 80 Mg Tablet, 80 MG PO HS, #60 TAB [facility] 10/15/18 Current Medications IV Flush (NS 3 ml) 3 ml PER PROTOCOL IV ; Start 02/21/19 at 23:00 Ondansetron HCl (Zofran Inj) 4 mg Q6H PRN IV NAUSEA/VOMITING Last administered on 02/23/19 21:23; Admin Dose 4 MG; Start 02/21/19 at 23:00 Acetaminophen (Tylenol Tab) 650 mg Q6H PRN PO .PAIN 1-3 OR TEMP; Start 02/21/19 at 23:00 Albuterol/ Ipratropium (Duoneb) 3 ml Q2H RESP THERAPY PRN HHN SHORTNESS OF BREATH; Start 02/21/19 at 23:00 Amlodipine Besylate (Norvasc) 10 mg DAILY PO Last administered on 02/25/19 08:24; Admin Dose 10 MG; Start 02/22/19 at 09:00 Aspirin (Halfprin) 81 mg DAILY PO Last administered on 02/26/19 09:24; Admin Dose 81 MG; Start 02/22/19 at 09:00 Atorvastatin Calcium (Lipitor) 40 mg QHS PO Last administered on 02/26/19 19:50; Admin Dose 40 MG; Start 02/22/19 at 21:00 Bumetanide (Bumex) 1 mg DAILY PO Last administered on 02/26/19 09:23; Admin Dose 1 MG; Start 02/22/19 at 09:00 Carvedilol (Coreg) 25 mg BID PO Last administered on 02/26/19 19:51; Admin Dose 25 MG; Start 02/21/19 at 23:00 Hydralazine HCl (Apresoline) 25 mg TID PO Last administered on 02/26/19at 19:50; Admin Dose 25 MG; Start 02/21/19 at 23:00 Losartan Potassium (Cozaar) 25 mg DAILY PO Last administered on 02/25/19 08:27; Admin Dose 25 MG; Start 02/22/19 at 09:00 Diagnostic Test (Pha) (Accu-Chek) 1 ea 02 XX ; Start 02/22/19 at 02:00 Insulin Glargine (Lantus) 12 units DAILY@0800 SC Last administered on 02/25/19 08:29; Admin Dose 12 UNITS; Start 02/22/19 at 08:00 Insulin Aspart (Novolog Insulin Pen) 5 unit WITH MEALS SC Last administered on 02/25/19at 17:52; Admin Dose 5 UNIT; Start 02/22/19 at 07:55 Insulin Aspart (Novolog Insulin Pen) NOVOLOG *MILD* ALGORITHM WITH MEALS BEDTIME SC Last administered on 02/22/19at 13:09; Admin Dose 1 UNIT; Start 02/22/19 at 07:55 Miscellaneous Information 1 ea NOTE XX ; Start 02/21/19 at 23:30 Glucose (Glutose) 15 gm Q15M PRN PO DECREASED GLUCOSE; Start 02/21/19 at 23:30 Glucose (Glutose) 22.5 gm Q15M PRN PO DECREASED GLUCOSE; Start 02/21/19 at 23:30 Dextrose (D50w Syringe) 25 ml Q15M PRN IV DECREASED GLUCOSE; Start 02/21/19 at 23:30 Dextrose (D50w Syringe) 50 ml Q15M PRN IV DECREASED GLUCOSE; Start 02/21/19 at 23:30 Glucagon (Glucagen) 1 mg Q15M PRN IM DECREASED GLUCOSE; Start 02/21/19 at 23:30 Glucose (Glutose) 15 gm Q15M PRN BUCCAL DECREASED GLUCOSE; Start 02/21/19 at 23:30 Miscellaneous Information Patients own medicat... BID@10,16 XX ; Start 02/22/19 at 10:00 Nicotine (Nicoderm 14 Mg/ 24hr) 1 patch DAILY TRANSDERM Last administered on 02/26/19at 09:25; Admin Dose 1 PATCH; Start 02/22/19 at 13:30 Epoetin Rafiq-epbx (Retacrit (Esrd)) 4,000 unit MoWeFr@1700 SC Last administered on 02/24/19at 17:59; Admin Dose 4,000 UNIT; Start 02/24/19 at 17:00 Heparin Sodium (Porcine) (Heparin (1000 Units/ml)) 4,500 unit PRN PRN CATHETER Dialysis Last administered on 02/26/19at 16:45; Admin Dose 4,500 UNIT; Start 02/23/19 at 22:30 Mannitol 50 ml @ 50 mls/5 min WITH DIALYSIS PRN IV DISEQUILIBRIUM SYNDROME PPX Last administered on 02/24/19at 11:21; Admin Dose 50 MLS/5 MIN; Start 02/24/19 at 11:30 Calcium Acetate (Phoslo) 1,334 mg WITH MEALS PO Last administered on 02/25/19at 17:46; Admin Dose 1,334 MG; Start 02/24/19 at 17:55 Meds reviewed: Yes Allergies Coded Allergies: No Known Allergy (Unverified , 02/21/19) Allergies Reviewed: Yes Labs/Studies Labs Reviewed: Reviewed by anesthesiologist Result Diagram: 02/26/1918 02/26/19 0618 Laboratory Tests 02/26/19 06:18 test: N/A Pre-procedure Exam Last vitals Vital Signs Date Temp Pulse Resp B/P (MAP) Pulse Ox O2 O2 Flow FiO2 Time Delivery Rate 02/26/19 98.2 67 20 194/86 96 Room Air 19:56 (122) 02/25/19 2.0 21:41 02/25/19 21 00:22 Airway: Adequate mouth opening, Adequate thyromental dist Mallampati: Mallampati I Teeth: Normal Lung: Normal Heart: Normal ASA Physical Status ASA physical status: 3 Emergency: None Planned Anesthetic General/MAC: LMA Planned Pain Management Parenteral pain med Pre-operative Attestations Prior to commencing anesthesia and surgery, the patient was re-evaluated, there was verification of: *The patient's identity *The results of appropriate recent lab work and preoperative vital signs *The above evaluation not changing prior to induction *Anesthetic plan, risk benefits, alternative and complications discussed with patient/family; questions answered; patient/family understands, accepts and wishes to proceed. CHELY IRAHETA February 26, 2019 21:15
[2019-02-26] MEDS ORDERED: ROCURONIUM 50 MG INJ ONE (21:18)
[2019-02-26] MEDS ORDERED: LIDOCAINE 2% (SDV) 5 ML INJ ONE (21:18)
[2019-02-26] MEDS ORDERED: PROPOFOL 20 ML ONE (21:18)
[2019-02-26] MEDS ORDERED: CEFAZOLIN 1 GM INJ ONE (21:45)
--- NOTE | 2019-02-26 22:10 | OPR ---
Date/Time of Note Date/Time of Note DATE: 02/26/19 TIME: 22:09 Operative Report Procedure Date: February 26, 2019 Preoperative Diagnosis End-stage renal disease Postoperative Diagnosis Same Operation/Procedure Performed Right arm AV fistula placement Surgeon see signature line Patient Transport Orderly None Anesthesia Type: MAC Estimated Blood Loss: minimal Transfusion none Specimen None Grafts/Implants none Complications none Pt Condition Post Procedure: stable Disposition: PACU Procedure Description Patient was placed in supine position prepped and draped in usual sterile fashion timeout was called antibiotics was given I did start I made a 4 cm incision lateral to the pulsation of the right radial artery at the wrist in a vertical fashion incision was taken down to subcutaneous tissues the cephalic vein was identified ligated distally the radial artery was identified with solution of pus around the patient was given 5000 units of IV heparin the vein was anastomosed to the radial artery in an end-to-side fashion 7-0 Prolene continuous suture technique to the 8 mm longitudinal or radial arteriotomy 7-0 Prolene continuous suture technique the wound was irrigated and closed in 2 layers of 3-0 Vicryl suture in a running and subcuticular skin closure patient had a strong thrill and bruit over the newly constructed AV fistula on the radial pulse distally no signs of ischemia tolerated procedure well ENRIQUE LACY MD February 26, 2019 22:10
--- NOTE | 2019-02-26 22:17 | PAC ---
Date/Time of Note Date/Time of Note DATE: 02/26/19 TIME: 22:17 Post-Anesthesia Notes Post-Anesthesia Note Last documented vital signs Vital Signs Date Temp Pulse Resp B/P (MAP) Pulse Ox O2 O2 Flow FiO2 Time Delivery Rate 02/26/19 98.2 67 20 194/86 96 Room Air 2217 (122) 02/25/19 2.0 21:41 02/25/19 21 00:22 Activity: WNL Respiratory function: WNL Cardiovascular function: WNL Mental status: Baseline Pain reasonably controlled: Yes Hydration appropriate: Yes Nausea/Vomiting absent: Yes CHELY IRAHETA February 26, 2019 22:17
[2019-02-26] MEDS ORDERED: DIPHENHYDRAMINE 50 MG INJ IV PRN (22:30)
[2019-02-26] MEDS ORDERED: EPHEDrine SULFATE 50 MG/5 ML SYG IV PRN (22:30)
[2019-02-26] MEDS ORDERED: FENTAnyl 50 MCG/ML VIAL IV PRN ×3 (22:30)
[2019-02-26] MEDS ORDERED: ONDANSETRON 4 MG INJ IV PRN (22:30)
[2019-02-26] MEDS ORDERED: OXYCODONE/ACETAMINOPHEN (5/325) TAB PO PRN ×2 (22:30)
[2019-02-26] MEDS ORDERED: ALBUTEROL 0.083% (NEB) 2.5 MG/3 ML AMP HHN PRN (22:30)
[2019-02-26] MEDS ORDERED: LABETALOL HCL 20MG INJ IV PRN (22:30)
[2019-02-26] MEDS ORDERED: MEPERIDINE 25 MG INJ IV PRN (22:30)
[2019-02-26] MEDS ORDERED: hydrALAzine 20 MG INJ IV PRN (22:30)
[2019-02-26] MEDS ORDERED: HYDROmorphONE 1 MG/5 ML IV SYRINGE IV PRN ×3 (22:30)
[2019-02-27] VITALS (22 sets, daily range): BP systolic 127–169; BP diastolic 54–80; PULSE 53–93; RESP 18–20
[2019-02-27] MEDS: ACETAMINOPHEN 325 MG TAB PO PRN ×2 (00:13→06:53)
[2019-02-27] MEDS: ACCU-CHEK XX SCH (01:10)
--- NOTE | 2019-02-27 06:22 | CONS ---
Assessment/Plan Assessment/Plan Assessment/Plan (Daily) The patient has end-stage renal disease. Noncompliant with follow-up never followed up with the dialysis center 2. Hypertension. 3. Diabetes mellitus. 4. Anasarca. 5. Volume overload. 6. Hyperkalemia. 7. Anemia of chronic kidney disease. 8. Diabetes mellitus. 9. Hypoalbuminemia. 10. Uremic symptoms. plan -HD today - will do extra session on 02/27/19 renally dose all meds -phos binder -Patient will be compliant with dialysis now -flight control manager to set up hemodialysis at [facility] - Consultation Date/Type/Reason Admit Date/Time Feb 21, 2019 at 20:44 Initial Consult Date 02/24/19 Date/Time of Note DATE: 02/26/19 24 HR Interval Summary Free Text/Dictation Pt was seen on 02/26/19 hd in progress fistula placemeent today Exam/Review of Systems Exam Vitals Vital Signs Date Temp Pulse Resp B/P (MAP) Pulse Ox O2 O2 Flow FiO2 Time Delivery Rate 02/27/19 97.9 58 20 147/68 94 Room Air 04:24 (94) 02/26/19 2.0 23:24 02/25/19 21 00:22 Intake and Output 02/26/19 02/26/19 02/27/19 1515:00 23:00 07:00 IntakeIntake Total 100 ml OutputOutput Total 200 ml 3020 ml BalanceBalance -200 ml -2920 ml Exam Respiratory: clear to auscultation, diminished breath sounds Cardiovascular: regular rate and rhythm Gastrointestinal: soft Extremities: edema (+++) Results Result Diagram: 02/26/1918 02/26/1918 Results 24hrs Laboratory Tests Test 02/26/19 07:59 02/26/19 12:01 02/26/19 17:04 02/26/19 19:41 Bedside Glucose 86 125 84 83 Test 02/26/19 22:18 Bedside Glucose 80 Medications Medication Current Medications IV Flush (NS 3 ml) 3 ml PER PROTOCOL IV ; Start 02/21/19 at 23:00 Ondansetron HCl (Zofran Inj) 4 mg Q6H PRN IV NAUSEA/VOMITING Last administered on 02/23/19at 21:23; Admin Dose 4 MG; Start 02/21/19 at 23:00 Acetaminophen (Tylenol Tab) 650 mg Q6H PRN PO .PAIN 1-3 OR TEMP Last administered on 02/27/19 00:13; Admin Dose 650 MG; Start 02/21/19 at 23:00 Albuterol/ Ipratropium (Duoneb) 3 ml Q2H RESP THERAPY PRN HHN SHORTNESS OF BREATH; Start 02/21/19 at 23:00 Amlodipine Besylate (Norvasc) 10 mg DAILY PO Last administered on 02/25/19 08:24; Admin Dose 10 MG; Start 02/22/19 at 09:00 Aspirin (Halfprin) 81 mg DAILY PO Last administered on 02/26/19 09:24; Admin Dose 81 MG; Start 02/22/19 at 09:00 Atorvastatin Calcium (Lipitor) 40 mg QHS PO Last administered on 02/26/19 19:50; Admin Dose 40 MG; Start 02/22/19 at 21:00 Bumetanide (Bumex) 1 mg DAILY PO Last administered on 02/26/19 09:23; Admin Dose 1 MG; Start 02/22/19 at 09:00 Carvedilol (Coreg) 25 mg BID PO Last administered on 02/26/19 19:51; Admin Dose 25 MG; Start 02/21/19 at 23:00 Hydralazine HCl (Apresoline) 25 mg TID PO Last administered on 02/26/19 19:50; Admin Dose 25 MG; Start 02/21/19 at 23:00 Losartan Potassium (Cozaar) 25 mg DAILY PO Last administered on 02/25/19 0 8:27; Admin Dose 25 MG; Start 02/22/19 at 09:00 Diagnostic Test (Pha) (Accu-Chek) 1 ea 02 XX ; Start 02/22/19 at 02:00 Insulin Glargine (Lantus) 12 units DAILY@0800 SC Last administered on 02/25/19 08:29; Admin Dose 12 UNITS; Start 02/22/19 at 08:00 Insulin Aspart (Novolog Insulin Pen) 5 unit WITH MEALS SC Last administered on 02/25/19 17:52; Admin Dose 5 UNIT; Start 02/22/19 at 07:55 Insulin Aspart (Novolog Insulin Pen) NOVOLOG *MILD* ALGORITHM WITH MEALS BEDTIME SC Last administered on 02/22/19 13:09; Admin Dose 1 UNIT; Start 02/22/19 at 07:55 Miscellaneous Information 1 ea NOTE XX ; Start 02/21/19 at 23:30 Glucose (Glutose) 15 gm Q15M PRN PO DECREASED GLUCOSE; Start 02/21/19 at 23:30 Glucose (Glutose) 22.5 gm Q15M PRN PO DECREASED GLUCOSE; Start 02/21/19 at 23:30 Dextrose (D50w Syringe) 25 ml Q15M PRN IV DECREASED GLUCOSE; Start 02/21/19 at 23:30 Dextrose (D50w Syringe) 50 ml Q15M PRN IV DECREASED GLUCOSE; Start 02/21/19 at 23:30 Glucagon (Glucagen) 1 mg Q15M PRN IM DECREASED GLUCOSE; Start 02/21/19 at 23:30 Glucose (Glutose) 15 gm Q15M PRN BUCCAL DECREASED GLUCOSE; Start 02/21/19 at 23:30 Miscellaneous Information Patients own medicat... BID@10,16 XX ; Start 02/22/19 at 10:00 Nicotine (Nicoderm 14 Mg/ 24hr) 1 patch DAILY TRANSDERM Last administered on 02/26/19 09:25; Admin Dose 1 PATCH; Start 02/22/19 at 13:30 Epoetin Rafiq-epbx (Retacrit (Esrd)) 4,000 unit MoWeFr@1700 SC Last administered on 02/24/19at 17:59; Admin Dose 4,000 UNIT; Start 02/24/19 at 17:00 Heparin Sodium (Porcine) (Heparin (1000 Units/ml)) 4,500 unit PRN PRN CATHETER Dialysis Last administered on 02/26/19at 16:45; Admin Dose 4,500 UNIT; Start 02/23/19 at 22:30 Mannitol 50 ml @ 50 mls/5 min WITH DIALYSIS PRN IV DISEQUILIBRIUM SYNDROME PPX Last administered on 02/24/19 11:21; Admin Dose 50 MLS/5 MIN; Start 02/24/19 at 11:30 Calcium Acetate (Phoslo) 1,334 mg WITH MEALS PO Last administered on 02/25/19 17:46; Admin Dose 1,334 MG; Start 02/24/19 at 17:55 PATRICIA TESFAYE MD February 27, 2019 06:22
[2019-02-27] MEDS: LOSARTAN 25 MG TAB PO SCH (07:41)
[2019-02-27] MEDS: AMLODIPINE 10 MG TAB PO SCH (07:42)
[2019-02-27] MEDS: ASPIRIN (EC) 81 MG TAB PO SCH (08:22)
[2019-02-27] MEDS: BUMETANIDE 1 MG TAB PO SCH (08:23)
[2019-02-27] MEDS: CALCIUM ACETATE 667 MG CAP PO SCH ×3 (08:23→17:25)
[2019-02-27] MEDS: NICOTINE (14 MG/24 HR) PATCH TRANSDERM SCH (08:24)
[2019-02-27] MEDS: INSULIN GLARGINE [LANTus] (100 UNITS/ML) SYG SC SCH (08:31)
[2019-02-27] MEDS: INSULIN ASPART [NOVOLOG] 3 ML PEN SC SCH ×7 (08:31→20:53)
--- NOTE | 2019-02-27 10:26 | CONS ---
Assessment/Plan Assessment/Plan Assessment/Plan (Daily) Assessment/Plan (Daily) 1. The patient has end-stage renal disease. Noncompliant with follow-up never followed up with the dialysis center 2. Hypertension. 3. Diabetes mellitus. 4. Anasarca. 5. Volume overload. 6. Hyperkalemia. 7. Anemia of chronic kidney disease. 8. Diabetes mellitus. 9. Hypoalbuminemia. 10. Uremic symptoms. 11 2 HPT plan -HD today extra session - Fistula placement , avoid BP/ Blood draws in that arm renally dose all meds -phos binder -Patient will be compliant with dialysis now - cw Losartan/coreg -placement done at [facility] at [facility] 03.27 Consultation Date/Type/Reason Admit Date/Time Feb 21, 2019 at 20:44 Initial Consult Date 02/24/19 Date/Time of Note DATE: 02/27/19 TIME: 10:26 24 HR Interval Summary Free Text/Dictation SP Fistula placement Exam/Review of Systems Exam Vitals Vital Signs Date Temp Pulse Resp B/P (MAP) Pulse Ox O2 O2 Flow FiO2 Time Delivery Rate 02/27/19 64 08:00 02/27/19 98.5 20 137/62 93 07:19 (87) 02/27/19 Room Air 04:24 02/26/19 2.0 23:24 02/25/19 21 00:22 Intake and Output 02/26/19 02/26/19 02/27/19 1515:00 23:00 07:00 IntakeIntake Total 100 ml 450 ml OutputOutput Total 200 ml 3020 ml BalanceBalance -200 ml -2920 ml 450 ml Exam Respiratory: clear to auscultation, diminished breath sounds Cardiovascular: regular rate and rhythm Gastrointestinal: soft Extremities: edema (+++) permacath fistula creation Results Result Diagram: 02/27/19 0602/27/19 06 Results 24hrs Laboratory Tests Test 02/26/19 12:01 02/26/19 17:04 02/26/19 19:41 02/26/19 22:18 Bedside Glucose 125 84 83 80 Test 02/27/19 06:27 02/27/19 08:22 White Blood Count 4.4 L Red Blood Count 2.52 L Hemoglobin 7.7 L Hematocrit 24.0 L Mean Corpuscular Volume 95.2 Mean Corpuscular 30.6 Hemoglobin Mean Corpuscular 32.1 Hemoglobin Concent Red Cell Distribution 13.2 Width Platelet Count 93 L Mean Platelet Volume 12.6 H Immature Granulocytes % 0.200 Neutrophils % 71.0 Lymphocytes % 13.8 L Monocytes % 12.2 H Eosinophils % 2.3 Basophils % 0.5 Nucleated Red Blood 0.0 Cells % Immature Granulocytes # 0.010 Neutrophils # 3.1 Lymphocytes # 0.6 L Monocytes # 0.5 Eosinophils # 0.1 Basophils # 0.0 Nucleated Red Blood 0.0 Cells # Sodium Level 138 Potassium Level 4.7 Chloride Level 102 Carbon Dioxide Level 29 Anion Gap 7 Blood Urea Nitrogen 53 #H Creatinine 5.79 #H Est Glomerular Filtrat 10 L Rate mL/min Glucose Level 120 # Calcium Level 8.1 L Bedside Glucose 143 Medications Medication Current Medications IV Flush (NS 3 ml) 3 ml PER PROTOCOL IV ; Start 02/21/19 at 23:00 Ondansetron HCl (Zofran Inj) 4 mg Q6H PRN IV NAUSEA/VOMITING Last administered on 02/23/19 21:23; Admin Dose 4 MG; Start 02/21/19 at 23:00 Acetaminophen (Tylenol Tab) 650 mg Q6H PRN PO .PAIN 1-3 OR TEMP Last ad ministered on 02/27/19 06:53; Admin Dose 650 MG; Start 02/21/19 at 23:00 Albuterol/ Ipratropium (Duoneb) 3 ml Q2H RESP THERAPY PRN HHN SHORTNESS OF BREATH; Start 02/21/19 at 23:00 Amlodipine Besylate (Norvasc) 10 mg DAILY PO Last administered on 02/25/19 08:24; Admin Dose 10 MG; Start 02/22/19 at 09:00 Aspirin (Halfprin) 81 mg DAILY PO Last administered on 02/27/19 08:22; Admin Dose 81 MG; Start 02/22/19 at 09:00 Atorvastatin Calcium (Lipitor) 40 mg QHS PO Last administered on 02/26/19 19:5 0; Admin Dose 40 MG; Start 02/22/19 at 21:00 Bumetanide (Bumex) 1 mg DAILY PO Last administered on 02/27/19 08:23; Admin Dose 1 MG; Start 02/22/19 at 09:00 Carvedilol (Coreg) 25 mg BID PO Last administered on 02/26/19 19:51; Admin Dose 25 MG; Start 02/21/19 at 23:00 Hydralazine HCl (Apresoline) 25 mg TID PO Last administered on 02/26/19at 19:50; Admin Dose 25 MG; Start 02/21/19 at 23:00 Losartan Potassium (Cozaar) 25 mg DAILY PO Last administered on 02/25/19 08:27; Admin Dose 25 MG; Start 02/22/19 at 09:00 Diagnostic Test (Pha) (Accu-Chek) 1 ea 02 XX ; Start 02/22/19 at 02:00 Insulin Glargine (Lantus) 12 units DAILY@0800 SC Last administered on 02/27/19 08:31; Admin Dose 12 UNITS; Start 02/22/19 at 08:00 Insulin Aspart (Novolog Insulin Pen) 5 unit WITH MEALS SC Last administered on 02/27/19 08:31; Admin Dose 5 UNIT; Start 02/22/19 at 07:55 Insulin Aspart (Novolog Insulin Pen) NOVOLOG *MILD* ALGORITHM WITH MEALS BEDTIME SC Last administered on 02/27/19 08:31; Admin Dose 1 UNIT; Start 02/22/19 at 07:55 Miscellaneous Information 1 ea NOTE XX ; Start 02/21/19 at 23:30 Glucose (Glutose) 15 gm Q15M PRN PO DECREASED GLUCOSE; Start 02/21/19 at 23:30 Glucose (Glutose) 22.5 gm Q15M PRN PO DECREASED GLUCOSE; Start 02/21/19 at 23:30 Dextrose (D50w Syringe) 25 ml Q15M PRN IV DECREASED GLUCOSE; Start 02/21/19 at 23:30 Dextrose (D50w Syringe) 50 ml Q15M PRN IV DECREASED GLUCOSE; Start 02/21/19 at 23:30 Glucagon (Glucagen) 1 mg Q15M PRN IM DECREASED GLUCOSE; Start 02/21/19 at 23:30 Glucose (Glutose) 15 gm Q15M PRN BUCCAL DECREASED GLUCOSE; Start 02/21/19 at 23:30 Miscellaneous Information Patients own medicat... BID@10,16 XX ; Start 02/22/19 at 10:00 Nicotine (Nicoderm 14 Mg/ 24hr) 1 patch DAILY TRANSDERM Last administered on 02/27/19 08:24; Admin Dose 1 PATCH; Start 02/22/19 at 13:30 Epoetin Rafiq-epbx (Retacrit (Esrd)) 4,000 unit MoWeFr@1700 SC Last administered on 02/24/19 17:59; Admin Dose 4,000 UNIT; Start 02/24/19 at 17:00 Heparin Sodium (Porcine) (Heparin (1000 Units/ml)) 4,500 unit PRN PRN CATHETER Dialysis Last administered on 02/26/19 16:45; Admin Dose 4,500 UNIT; Start 02/23/19 at 22:30 Mannitol 50 ml @ 50 mls/5 min WITH DIALYSIS PRN IV DISEQUILIBRIUM SYNDROME PPX Last administered on 02/24/19 11:21; Admin Dose 50 MLS/5 MIN; Start 02/24/19 at 11:30 Calcium Acetate (Phoslo) 1,334 mg WITH MEALS PO Last administered on 02/27/19 08:23; Admin Dose 1,334 MG; Start 02/24/19 at 17:55 PATRICIA TESFAYE MD February 27, 2019 10:26
[2019-02-27] MEDS: HYDROCODONE/APAP (5/325) TAB PO PRN ×2 (11:25→19:26)
--- NOTE | 2019-02-27 15:09 | PN ---
Date/Time of Note Date/Time of Note DATE: 02/27/19 TIME: 15:07 Assessment/Plan VTE Prophylaxis Risk score (from Nsg)>0 risk: 4 SCD applied (from Nsg): Yes Pharmacological prophylaxis: heparin Lines/Catheters IV Catheter Type (from Nrsg): Permacath Urinary Cath still in place: No Assessment/Plan Assessment/Plan 54-year-old male with a history of hypertension, diabetes, dyslipidemia, ESRD who was supposed to be on dialysis, who presents with: 1. Volume overload state-slowly improving after getting dialysis here as an inpatient, patient was initiated on dialysis in September of last year. Unfortunately, patient apparently never followed up after that. -Follow-up recommendations from nephrology consult for dialysis schedule while here in the hospital. Of note, patient still has right chest tunneled catheter -Duo nebs as needed, case management also contacted to set up patient's dialysis as an outpatient - s/p AV fistula surgery 2. ESRD: See #1 3. Hypertensive urgency: Resolved -Continue current blood pressure medicines, adjust BP meds as needed. Of note blood pressure expected to be even better with dialysis 4. Diabetes: A1c equals 6.3 -Monitor sugars continue insulin while in-house 5. Dyslipidemia: Continue statin 6. Smoking history: Counseled on cessation - nicotine patch Dispo: Anticipate discharge within 24-48 hours. Result Diagram: 02/27/1927 02/27/19626 Subjective 24 Hr Interval Summary Free Text/Dictation No acute overnight events. Patient feeling well after surgery. Pain adequately controlled. Exam/Review of Systems Exam Vitals Vital Signs Date Temp Pulse Resp B/P (MAP) Pulse Ox O2 O2 Flow FiO2 Time Delivery Rate 02/27/19 60 12:00 02/27/19 98.6 20 133/62 95 11:23 (85) 02/27/19 Room Air 04:24 02/26/19 2.0 23:24 02/25/19 21 00:22 Intake and Output 02/26/19 02/26/19 02/27/19 1515:00 23:00 07:00 IntakeIntake Total 100 ml 450 ml OutputOutput Total 200 ml 3020 ml BalanceBalance -200 ml -2920 ml 450 ml Exam Constitutional: Lying in bed, no acute distress HEENT:Normocephalic. Atraumatic.Pupils were equal round reactive to light. Neck: No nuchal rigidity. No lymphadenopathy. No posterior cervical spine tenderness or step-offs. Respiratory: clear to auscultation bilaterally. No rhonchi. No rales. No wheezing. Cardiovascular: Regular rate regular rhythm.No murmurs. No rubs were appreciated.S1, S2 normal. GI: Abdomen was soft. Nontender. Non Distended. No rebound. No guarding. Bowel sounds were present and normal. Muscle skeletal: Full range of motion of both the upper and lower extremities bilaterally.Normal muscle tone.No assymetrical calf tenderness or swelling. Skin: No petechia, no purpura. No lesions on the palms or the soles of the feet. No maculopapular rash. Right tunneled chest wall catheter was in place. Musculoskeletal: 1+ nonpitting edema bilateral lower extremities to the mid calves Results Results 24hrs Laboratory Tests Test 02/26/19 17:04 02/26/19 19:41 02/26/19 22:18 02/27/19 06:27 Bedside Glucose 84 83 80 White Blood Count 4.4 L Red Blood Count 2.52 L Hemoglobin 7.7 L Hematocrit 24.0 L Mean Corpuscular Volume 95.2 Mean Corpuscular 30.6 Hemoglobin Mean Corpuscular 32.1 Hemoglobin Concent Red Cell Distribution 13.2 Width Platelet Count 93 L Mean Platelet Volume 12.6 H Immature Granulocytes % 0.200 Neutrophils % 71.0 Lymphocytes % 13.8 L Monocytes % 12.2 H Eosinophils % 2.3 Basophils % 0.5 Nucleated Red Blood 0.0 Cells % Immature Granulocytes # 0.010 Neutrophils # 3.1 Lymphocytes # 0.6 L Monocytes # 0.5 Eosinophils # 0.1 Basophils # 0.0 Nucleated Red Blood 0.0 Cells # Sodium Level 138 Potassium Level 4.7 Chloride Level 102 Carbon Dioxide Level 29 Anion Gap 7 Blood Urea Nitrogen 53 #H Creatinine 5.79 #H Est Glomerular Filtrat 10 L Rate mL/min Glucose Level 120 # Calcium Level 8.1 L Test 02/27/19 08:22 02/27/19 12:00 Bedside Glucose 143 96 Medications Medication Current Medications IV Flush (NS 3 ml) 3 ml PER PROTOCOL IV ; Start 02/21/19 at 23:00 Ondansetron HCl (Zofran Inj) 4 mg Q6H PRN IV NAUSEA/VOMITING Last administered on 02/23/19 21:23; Admin Dose 4 MG; Start 02/21/19 at 23:00 Acetaminophen (Tylenol Tab) 650 mg Q6H PRN PO .PAIN 1-3 OR TEMP Last administered on 02/27/19 06:53; Admin Dose 650 MG; Start 02/21/19 at 23:00 Albuterol/ Ipratropium (Duoneb) 3 ml Q2H RESP THERAPY PRN HHN SHORTNESS OF BREATH; Start 02/21/19 at 23:00 Amlodipine Besylate (Norvasc) 10 mg DAILY PO Last administered on 02/25/19 08:24; Admin Dose 10 MG; Start 02/22/19 at 09:00 Aspirin (Halfprin) 81 mg DAILY PO Last administered on 02/27/19 08:22; Admin Dose 81 MG; Start 02/22/19 at 09:00 Atorvastatin Calcium (Lipitor) 40 mg QHS PO Last administered on 02/26/19 19:50; Admin Dose 40 MG; Start 02/22/19 at 21:00 Bumetanide (Bumex) 1 mg DAILY PO Last administered on 02/27/19 08:23; Admin Dose 1 MG; Start 02/22/19 at 09:00 Carvedilol (Coreg) 25 mg BID PO Last administered on 02/26/19 19:51; Admin Dose 25 MG; Start 02/21/19 at 23:00 Hydralazine HCl (Apresoline) 25 mg TID PO Last administered on 02/26/19 19:50; Admin Dose 25 MG; Start 02/21/19 at 23:00 Losartan Potassium (Cozaar) 25 mg DAILY PO Last administered on 02/25/19 08:27; Admin Dose 25 MG; Start 02/22/19 at 09:00 Diagnostic Test (Pha) (Accu-Chek) 1 ea 02 XX ; Start 02/22/19 at 02:00 Insulin Glargine (Lantus) 12 units DAILY@0800 SC Last administered on 02/27/19 08:31; Admin Dose 12 UNITS; Start 02/22/19 at 08:00 Insulin Aspart (Novolog Insulin Pen) 5 unit WITH MEALS SC Last administered on 02/27/19 12:05; Admin Dose 5 UNIT; Start 02/22/19 at 07:55 Insulin Aspart (Novolog Insulin Pen) NOVOLOG *MILD* ALGORITHM WITH MEALS BEDTIME SC Last administered on 02/27/19 08:31; Admin Dose 1 UNIT; Start 02/22/19 at 07:55 Miscellaneous Information 1 ea NOTE XX ; Start 02/21/19 at 23:30 Glucose (Glutose) 15 gm Q15M PRN PO DECREASED GLUCOSE; Start 02/21/19 at 23:30 Glucose (Glutose) 22.5 gm Q15M PRN PO DECREASED GLUCOSE; Start 02/21/19 at 23:30 Dextrose (D50w Syringe) 25 ml Q15M PRN IV DECREASED GLUCOSE; Start 02/21/19 at 23:30 Dextrose (D50w Syringe) 50 ml Q15M PRN IV DECREASED GLUCOSE; Start 02/21/19 at 23:30 Glucagon (Glucagen) 1 mg Q15M PRN IM DECREASED GLUCOSE; Start 02/21/19 at 23:30 Glucose (Glutose) 15 gm Q15M PRN BUCCAL DECREASED GLUCOSE; Start 02/21/19 at 23:30 Miscellaneous Information Patients own medicat... BID@10,16 XX ; Start 02/22/19 at 10:00 Nicotine (Nicoderm 14 Mg/ 24hr) 1 patch DAILY TRANSDERM Last administered on 02/27/19 08:24; Admin Dose 1 PATCH; Start 02/22/19 at 13:30 Epoetin Rafiq-epbx (Retacrit (Esrd)) 4,000 unit MoWeFr@1700 SC Last administered on 02/24/19at 17:59; Admin Dose 4,000 UNIT; Start 02/24/19 at 17:00 Heparin Sodium (Porcine) (Heparin (1000 Units/ml)) 4,500 unit PRN PRN CATHETER Dialysis Last administered on 02/26/19 16:45; Admin Dose 4,500 UNIT; Start 02/23/19 at 22:30 Mannitol 50 ml @ 50 mls/5 min WITH DIALYSIS PRN IV DISEQUILIBRIUM SYNDROME PPX Last administered on 02/24/19 11:21; Admin Dose 50 MLS/5 MIN; Start 02/24/19 at 11:30 Calcium Acetate (Phoslo) 1,334 mg WITH MEALS PO Last administered on 02/27/19 12:01; Admin Dose 1,334 MG; Start 02/24/19 at 17:55 Acetaminophen/ Hydrocodone Bitart ([place] (5)) 1 tab Q4H PRN PO MODERATE PAIN LEVEL 4-6 Last administered on 02/27/19at 11:25; Admin Dose 1 TAB; Start 02/27/19 at 11:30 SHARON MEHTA MD February 27, 2019 15:09
[2019-02-27] MEDS: HEPARIN 1000 UNITS/ML 10 ML INJ CATHETER PRN (16:34)
[2019-02-27] MEDS: ATORVASTATIN 40 MG TAB PO SCH (20:52)
[2019-02-27] MEDS: ONDANSETRON 4 MG INJ IV PRN (20:53)
[2019-02-28 00:09] VITALS: PULSE 56
[2019-02-28] MEDS: ACCU-CHEK XX SCH (02:00)
[2019-02-28 03:33] VITALS: BP 130/63; PULSE 58; RESP 18
[2019-02-28] MEDS: HYDROCODONE/APAP (5/325) TAB PO PRN (03:43)
[2019-02-28 04:31] VITALS: PULSE 59
[2019-02-28 07:15] VITALS: BP 121/60; PULSE 58; RESP 18
[2019-02-28] MEDS: INSULIN ASPART [NOVOLOG] 3 ML PEN SC SCH ×4 (07:53→11:50)
[2019-02-28] MEDS: INSULIN GLARGINE [LANTus] (100 UNITS/ML) SYG SC SCH (07:58)
[2019-02-28] MEDS: BUMETANIDE 1 MG TAB PO SCH (08:03)
[2019-02-28] MEDS: LOSARTAN 25 MG TAB PO SCH (08:03)
[2019-02-28] MEDS: CALCIUM ACETATE 667 MG CAP PO SCH ×2 (08:03→11:50)
[2019-02-28] MEDS: AMLODIPINE 10 MG TAB PO SCH (08:04)
[2019-02-28] MEDS: ASPIRIN (EC) 81 MG TAB PO SCH (08:05)
[2019-02-28] MEDS: NICOTINE (14 MG/24 HR) PATCH TRANSDERM SCH (08:05)
[2019-02-28 08:12] VITALS: PULSE 67
[2019-02-28] MEDS ORDERED: HYDR-3601 PO (10:17)
[2019-02-28] MEDS: ONDANSETRON 4 MG INJ IV PRN (10:20)
--- NOTE | 2019-02-28 10:21 | PDOCDIS ---
Discharge Instructions DIAGNOSIS Discharge Diagnosis ESRD, missed dialysis CONDITION [id number] Patient Condition: [id number] Good HOME CARE INSTRUCTIONS: [id number] Diet Instructions: [id number] Reduced Sodium ACTIVITY: [id number] Activity Restrictions: [id number] No Restrictions FOLLOW UP/APPOINTMENTS Follow-up Plan 1. Keep right arm bandage clean and dry. Do not submerge in water and avoid getting it soaking wet. 2. Make an appointment with Dr. Ajit Rob ([phone]) next week. 3. For pain, take tylenol 650mg over the counter, max 5 tabs per day. If pain is very severe take [place]. Do not drink alcohol or drive after taking [place]. 4. Take all medications as prescribed. 5. Continue dialysis as scheduled. SHARON MEHTA MD February 28, 2019 10:21
[2019-02-28 11:00] VITALS: BP 163/72; PULSE 65; RESP 19
--- NOTE | 2019-02-28 15:30 | DS ---
Date/Time of Note Date/Time of Note DATE: 02/28/19 TIME: 15:28 Discharge Summary Admission/Discharge Info Admit Date/Time Feb 21, 2019 at 20:44 Discharge Date/Time February 28, 2019 Discharge Diagnosis ESRD, missed dialysis Patient Condition: Good Consults Dr. Yao, nephrology Dr. Rob, vascular surgery Procedures Right arm AV fistula placement 02/26/19 Hx of Present Illness This is a 54-year-old male with a history of hypertension, diabetes, dyslipidemia, ESRD who was supposed to be on dialysis. Patient presented to ER complaining of shortness of breath and bilateral lower extremity swelling. Dialysis was initiated here in September of last year. Patient has right chest tunneled catheter, however patient never followed up and has not had a dialysis since September of last year. He actually left AMA during last hospitalization. He said he still makes plenty of urine. When he presented to ER, blood pressure was 207/95. Creatinine 11, BUN 101, potassium 5.1. Chest x-ray with the findings suggestive of pericardial effusion and infiltrate. Chest CT has been ordered. Hospital Course The patient got HD as scheduled by Dr. Yao. Blood pressure improved quickly; labs normalized. He was taken for AV fistula placement by Dr. Rob on 02/26. He had some postoperative pain but recovered uneventfully. Discharged with plan to followup with surgery and to resume scheduled dialysis, which has been arranged by case management. Home Meds Active Scripts Hydrocodone Bit-Acetaminophen (Hydrocodone Bit-APAP) 5-325MG Tablet, 1 TAB PO Q4H PRN for MODERATE PAIN LEVEL 4-6, #21 TAB Prov:SHARON MEHTA MD 02/28/19 Reported Medications Clonidine Hcl* (Clonidine Hcl*) 0.1 Mg Tab, 0.1 MG PO BID, TAB 02/21/19 Amlodipine Besylate* (Amlodipine Besylate*) 10 Mg Tablet, 10 MG PO DAILY, #30 TAB 02/21/19 Insulin Aspart (Novolog Mix (70/30)) 100 Units/Ml Soln, 15 UNIT SC WITH LUNCH, VIAL 02/21/19 Hydralazine Hcl* (Hydralazine Hcl*) 25 Mg Tab, 25 MG PO TID, #90 TAB 02/21/19 Losartan Potassium* (Losartan Potassium*) 25 Mg Tablet, 25 MG PO DAILY, TAB 02/21/19 Carvedilol* (Carvedilol*) 25 Mg Tablet, 25 MG PO BID, #60 TAB 02/21/19 Bumetanide* (Bumetanide*) 1 Mg Tablet, 1 MG PO DAILY, TAB 02/21/19 Atorvastatin* (Atorvastatin*) 40 Mg Tablet, 40 MG PO QHS, #30 TAB 02/21/19 Aspirin* (Aspirin* EC) 81 Mg Tablet.dr, 81 MG PO DAILY, TAB 02/21/19 Discontinued Scripts Insulin Glargine* (Lantus*) 100 Unit/Ml Soln, 4 UNIT SC DAILY, #1 VIAL Prov:[facility] 10/15/18 Calcium Acetate* (Calcium Acetate*) 667 Mg Capsule, 1334 MG PO WITH MEALS, #90 CAP Prov:LYNETTE10/15/18 Bumetanide* (Bumetanide*) 1 Mg Tablet, 1 MG PO DAILY, #60 TAB Prov:[facility] 10/15/18 Nitroglycerin* (Nitroglycerin* SL) 0.4 Mg Tab.subl, 1 TAB SL Q5M PRN for CHEST PAIN, #90 TAB Prov:[facility] 10/15/18 Aspirin (Aspirin) 81 Mg Chew, 81 MG PO DAILY, #60 TAB Prov:[facility] 10/15/18 Losartan Potassium* (Cozaar*) 25 Mg Tablet, 25 MG PO DAILY, #60 TAB Prov:[facility] 10/15/18 Hydralazine Hcl* (Apresoline*) 50 Mg Tab, 25 MG PO TID, #90 TAB Prov:[facility] 10/15/18 Carvedilol* (Carvedilol*) 25 Mg Tablet, 25 MG PO BID, #60 TAB Prov:[facility] 10/15/18 Atorvastatin* (Atorvastatin*) 80 Mg Tablet, 80 MG PO HS, #60 TAB Prov:[facility] 10/15/18 Follow-up Plan 1. Keep right arm bandage clean and dry. Do not submerge in water and avoid getting it soaking wet. 2. Make an appointment with Dr. Ajit Rob ([phone]) next week. 3. For pain, take tylenol 650mg over the counter, max 5 tabs per day. If pain is very severe take [place]. Do not drink alcohol or drive after taking [place]. 4. Take all medications as prescribed. 5. Continue dialysis as scheduled. Primary Care Provider [facility] Time spent on discharge: > 30 minutes Pending Labs Laboratory Tests Test 02/27/19 17:24 02/27/19 20:49 02/28/19 07:48 Bedside Glucose 97 mg/dL (70-220) 94 mg/dL (70-220) 119 mg/dL (70-220) SHARON MEHTA MD February 28, 2019 15:30
== END 2019-02-28 12:25 | disposition home or self-care (01) | DRG 628 ==
LOC: E/R 15:59 → TEL 20:44
PROVIDERS: ADMIT Internal Medicine; ATTEND Internal Medicine
PROC: 30233N1 Transfusion of Nonautologous Red Blood Cells into Peripheral Vein, Percutaneous Approach (ICD-10-PCS; 2019-02-23)
PROC: 5A1D70Z Performance of Urinary Filtration, Intermittent, Less than 6 Hours Per Day (ICD-10-PCS; 2019-02-23)
PROC: 031B09F Bypass Right Radial Artery to Lower Arm Vein with Autologous Venous Tissue, Open Approach (ICD-10-PCS; principal; 2019-02-26 20:30)
DX: E87.70 Fluid overload, unspecified (principal); N18.6 End stage renal disease; I12.0 Hypertensive chronic kidney disease with stage 5 chronic kidney disease or end stage renal disease; E10.22 Type 1 diabetes mellitus with diabetic chronic kidney disease; E88.09 Other disorders of plasma-protein metabolism, not elsewhere classified; N18.9 Chronic kidney disease, unspecified; E78.5 Hyperlipidemia, unspecified; Z72.0 Tobacco use; Z99.2 Dependence on renal dialysis; I16.0 Hypertensive urgency; E87.5 Hyperkalemia; D63.1 Anemia in chronic kidney disease; R60.1 Generalized edema; Z91.15 Patient's noncompliance with renal dialysis
CPT/HCPCS: 36430; 71045; 71250; 80048; 80053; 82270; 82728; 82962; 83036; 83540; 83735; 84100; 85014; 85018; 85025; 85610; 85730; 86704; 86709; 86803; 86850; 86900; 86901; 86920; 87081; 87340; 90935; 93005; 93970; 93971; 96374; C1725; J0690; J1644; J1815; J1940; J2150; J2405; J3010; J7040; P9016; Q5105